=== PATIENT | female | born 1960 | race Caucasian/White ===

== ENCOUNTER 2021-09-15 15:00 | Outpatient (RCR) | payer OTHER, SELFPAY | END 2021-09-15 15:05 | disposition home or self-care (01) | LOC: PT 15:00 | PROVIDERS: PCP Obstetrics & Gynecology; Visit Provider Orthopaedic Surgery | DX: Z09 Encounter for follow-up examination after completed treatment for conditions other than malignant neoplasm (principal); M79.672 Pain in left foot | CPT/HCPCS: 97140; 97163 ==

== ENCOUNTER → 2021-09-20 16:09 | Outpatient (CLI) | payer OTHER, SELFPAY ==
--- NOTE | 2021-09-20 16:12 | XR_ITS ---
PROCEDURE: XR FOOT WT BEARING RT 3V CLINICAL INDICATION: pain COMPARISON: No exams were available for comparison FINDINGS: No fracture or dislocation. No lytic or blastic change. There is normal mineralization. Mild osteoarthritic changes are present the MTP joint. Small cerclage wires present along the medial and plantar aspect the proximal 1st phalanx. Bony hypertrophy is present at the distal aspect of the 1st metatarsal. Small Achilles enthesophyte is present. There is borderline pes planus. Other findings:None. IMPRESSION: Degenerative and postsurgical changes as described Dictated by: Odin Muller MD 09/20/2021 17:43 Odin Muller MD in [place] 09/20/2021 17:43
--- NOTE | 2021-09-20 16:12 | XR_ITS ---
PROCEDURE: XR FOOT WT BEARING LT 3V CLINICAL INDICATION: pain COMPARISON: No exams were available for comparison FINDINGS: No fracture or dislocation. No lytic or blastic change. There is normal mineralization. Mild osteoarthritis is present at the 1st and 2nd metatarsophalangeal joints. A small cerclage wire is present along the medial and plantar aspect the proximal 1st phalanx with some cortical thickening of the proximal 1st phalanx which could be due to an old fracture or postsurgical change. Bony hypertrophy involves the distal and plantar aspect the 1st metatarsal. There is fusion of the PIP joint of the 2nd digit and there is mild lateral subluxation of the proximal phalanx of the 2nd digit. There is borderline pes planus. Small Achilles enthesophyte is present. Other findings:None. IMPRESSION: Degenerative and postsurgical changes as described above Dictated by: Odin Muller MD 09/20/2021 17:42 Odin Muller MD in [place] 09/20/2021 17:42
== END ==
PROVIDERS: PCP Family Medicine; Visit Provider Podiatrist
DX: M79.672 Pain in left foot (principal); M79.671 Pain in right foot
CPT/HCPCS: 73630

== ENCOUNTER → 2021-11-29 10:17 | Outpatient (CLI) | payer OTHER, SELFPAY ==
--- NOTE | 2021-11-29 10:30 | XR_ITS ---
FINAL REPORT CLINICAL HISTORY: PRE-OP; history of lung cancer FINDINGS: 2 views of the chest were obtained . The heart is normal in size. The mediastinum is within normal limits. There is biapical pleural scarring and pleural thickening. Lungs are otherwise clear. There is no pneumothorax. There is levoscoliosis of the upper thoracic spine. IMPRESSION: No acute cardiopulmonary process. Reviewed, Interpreted and Dictated by Stan Marcano III, MD Transcribed by Madelaine Zapata Authenticated by Stan Marcano III, MD on 11/29/2021 04:18:[address] [facility]
[2021-11-29 10:50] LABS: Basophils # 0.1 K/mm3 (0-0.2); Eosinophils # 0.1 K/mm3 (0.0-0.4); Eosinophils % 3.4 % (0.1-12.0); Hematocrit 46.4 % (37.0-47.0); Hemoglobin 14.5 g/dL (12.2-16.2); Lymphocytes # 1.5 K/mm3 (0.7-4.5); Mean Corpuscular HGB Conc 31.2 g/dL (31.8-35.4); Mean Corpuscular Hemoglobin 30.9 pg (27.0-31.2); Mean Corpuscular Volume 99.2 fl (81-99); Mean Platelet Volume 8.7 fl (7.4-10.4); Monocytes # 0.3 K/mm3 (0.1-1.0); Monocytes % 7.9 % (1.7-9.3); Neutrophils # 1.5 K/mm3 (1.8-7.8); Neutrophils % 43.7 % (37.0-80.0); Platelet Count 219 K/mm3 (142-424); Red Blood Count 4.68 M/mm3 (4.20-5.40); Red Cell Distribution Width 13.7 % (11.5-17.5); White Blood Count 3.5 K/mm3 (4.8-10.8)
--- NOTE | 2021-11-29 10:51 | ECG_ITS ---
APPROVED REPORT Exam: Resting ECG HR:60 bpm ECG Measurements Heart Rate 60 AXES OR 158 P 85 QRSd 104 QRS 55 QT 400 T 87 QTc 400 Conclusion Normal sinus rhythm Incomplete right bundle branch block Borderline ECG Electronically signed by : Carlos Nicole MD 12/02/2021 13:49:57
[2021-11-29 11:36] LABS: Erythrocyte Sedimentation Rate 5 mm/hr (0-30)
[2021-11-29 11:57] LABS: Alanine Aminotransferase 18 U/L (12-78); Albumin Level 4.3 g/dl (3.5-5.0); Albumin/Globulin Ratio 1.8 (1.1-1.8); Alkaline Phosphatase 65 U/L (38-126); Aspartate Amino Transferase 27 U/L (14-36); Bilirubin,Total 0.7 mg/dl (0.2-1.3); Blood Urea Nitrogen 14 mg/dl (7-17); Carbon Dioxide 30 mmol/L (22.0-30.0); Chloride 101 mmol/L (98-107); Estimated Glomerular Filt Rate 85 ml/min (>60); GFR (African American) 103 ML/MIN (>60); Globulin 2.4 g/dL (1.3-3.2); Glucose 92 mg/dl (74-100); Sodium 137 mmol/L (136-145); Total Protein,Serum 6.7 g/dl (6.3-8.2)
[2021-11-29 12:04] LABS: C-Reactive Protein 1.5 mg/L (0-4)
[2021-11-29 12:09] LABS: Intact Parathyroid Hormone 47.7 pg/mL (7.5-53.5)
[2021-11-29 12:15] LABS: 25-OH Vitamin D, Total 59.3 ng/mL (30-100)
== END ==
PROVIDERS: PCP Family Medicine; Visit Provider Podiatrist
DX: Z01.812 Encounter for preprocedural laboratory examination (principal); Z11.52 Encounter for screening for COVID-19; M20.12 Hallux valgus (acquired), left foot; M77.52 Other enthesopathy of left foot and ankle
CPT/HCPCS: 36415; 71046; 80053; 82306; 83970; 85025; 85651; 86140; 93005; C9803; U0003; U0005

== ENCOUNTER 2021-12-01 06:58 | Day surgery (SDC) | payer OTHER, SELFPAY ==
[2021-11-26 09:30] VITALS: BMI 27.0
[2021-12-01] VITALS (13 sets, daily range): BP systolic 111–135; BP diastolic 65–85; PULSE 60–80; RESP 12–18; TEMP 36.5–43; O2SAT 92–98
--- NOTE | 2021-12-01 09:17 | P.PN_ITS ---
[facility] Anesthesia Checklist - Structural Data Admitted From: Home Planned Operative Procedure/s: orif l foot Consent for Planned Operative Procedure(s) Verified: Yes - Additional verifications Anesthesia Reactions: No Hx Blood Transfusions: No - Airway Assessment C-Spine Mobility Assessed: Yes TMJ Mobility Assessed: Yes Dentition: Good Dentition - Neurological Assessment Level of Consciousness: Awake, Alert, Appropriate - Psychosocial Assessment Concerns Regarding Surgery: explained pop block to pt, pt agrees to proceed - Anesthesia Plan Anesthesia Risk discussed: Yes Anesthesia Plan: Verified ASA Class: III Anesthesia Type: General w/block [facility] History I have reviewed the patient's past medical history: Yes Medical History: Reports:: Cancer (lung cancer) Denies:: Diabetes Mellitus Type 1, Diabetes Mellitus Type 2, Internal Pacemaker, MRSA, Seizures *Have you ever received a pneumonia vaccine?: Yes *Have you received a flu vaccine this season?: Yes Anesthesia experience/problems:: none Other Surgeries: Yes: Appendectomy, Dilation and Curettage. No: Pacemaker Amputation: No Fractures: No - *Social History Last grade of school completed: High school graduate Smoking Status: Never smoker Alcohol Intake: current Alcohol Intake Frequency:: 0-2 drinks per day Substance Use Type: denies use *Occupational Status:: unemployed *Travel in the last 8 weeks: None Family Hx:: No significant family history
--- NOTE | 2021-12-01 09:33 | SUR.OPER ---
0843-pt's updated at this time and notified of time of incision
--- NOTE | 2021-12-01 10:08 | SUR.OPER ---
1011-pt's updated at this time
--- NOTE | 2021-12-01 10:41 | SUR.OPER ---
1039-pt's updated at this time
--- NOTE | 2021-12-01 10:45 | XR_ITS ---
FINAL REPORT CLINICAL HISTORY: LEFT HAMMERTOE REPAIR OF 2ND 3RD TOE FINDINGS: FLUOROSCOPY TIME Fluoroscopic guidance was provided for the operating services. Two spot films were obtained. There are postoperative changes involving the 1st, 2nd and 3rd digits. There is 20 seconds of fluoroscopy time. IMPRESSION: 20 seconds of fluoroscopy time. Reviewed, Interpreted and Dictated by Stan Marcano III, MD Transcribed by Shivam Chicas Authenticated by Stan Marcano III, MD on 12/01/2021 11:54:[address] [facility]
--- NOTE | 2021-12-01 11:00 | XR_ITS ---
FINAL REPORT CLINICAL HISTORY: Post op hammertoe FINDINGS: Three views of the left foot were obtained. There are postoperative changes of the 1st, 2nd and 3rd digits. There are orthopedic wires in the 2nd and 3rd digits. There is no acute fracture or dislocation. The joint spaces are intact. There is no soft tissue abnormality. IMPRESSION: Postoperative changes involving the 1st, 2nd and 3rd digits. Reviewed, Interpreted and Dictated by Stan Marcano III, MD Transcribed by Shivam Chicas Authenticated by Stan Marcano III, MD on 12/01/2021 12:44:38 PM [facility]
--- NOTE | 2021-12-01 11:26 | HMH.ANESI ---
[facility] Anesthesia Record Part I Intake, IV Amount: 1,800 Estimated blood loss (mL): 0 Urine output (mL): 0 Blood Pressure: 123/67 SaO2: 94 Pulse Rate: 72 Respiratory Rate: 12 Temperature: 98 F Patient is:: Awake, Stable Stable to PACU at:: 11:20
--- NOTE | 2021-12-01 11:37 | SUR.PHASEI ---
1128- radiology at bedside taking xrays per Dr. potts's orders for post procedure.
--- NOTE | 2021-12-01 11:54 | SUR.PHASEI ---
1149- detailed report called to tray martinez in post op. 1151- pt left in stable condition under tray shields care at this time.
--- NOTE | 2021-12-01 12:25 | HMH.OPNOTE ---
Date of procedure: 12/01/21 Pre-op Diagnosis:: 1. Left retained orthopedic hardware 2. Capsulitis of metatarsophalangeal (MTP) joint of left foot 3. Left 2nd plantar plate tear 4. Acquired hammertoe of left foot 5. Acquired hallux valgus of left foot 6. Scar of foot 7. Primary osteoarthritis of both feet 8. Overweight (BMI 25.0-29.9) 9. Malignant neoplasm of upper lobe of left lung Post-op Diagnosis:: Same Procedure performed:: 1. Left foot hardware removal 2. Left Rene osteotomy with Hammer bunionectomy 3. Left 2nd plantar plate repair 4. Left 2-3rd revision hammertoe repair (2-3rd DIPJ arthoplasty, PIPJ arthodesis) 5. Left 2nd metatarsal osteotomy 6. Left 1-3rd MPJ releases 7. Left foot synovectomy Surgeon:: Paige Acosta DPM THREAD DRESSER:: Phoenix Myers Anesthesia: GETA, regional (Left popliteal nerve block) Estimated blood loss (mL): 20 Clinical Note:: Patient is a 61F who underwent mulitple foot surgeries for repair of hammertoes. After her last left foot surgery, she caught the surgical foot and bent the operative K wire. Which lead to its early removal. Discussed realistic expectations and goals. Goals: To wear shoe comfortably and walk for fitness without pain. I discussed conservative versus surgical treatment for the hammertoe deformity. The patient has tried modification of activity, modification of shoe gear, taping, toe spacers, strapping (Budin splint) and has failed conservative treatment. She has had two failed left HTs surgeries. The patient continues to have pain and worsening symptoms, affecting daily activities. She is unable to wear dress shoes or closed toe shoes. Patient understands that there may always be a degree of deformity and swelling. I discussed the risks versus benefits of surgery to include: bleeding, infection, nerve or blood vessel damage, need for future surgery, need for removal of the implant, prolonged swelling of the digit, prolonged pain, RSD/CRPS, wound complications, toe amputation secondary to infection/necrosis/gangrene, DVT/PE, and anesthetic complications. No guarantees were given. All questions fully answered. The patient verbalized understanding and agreed to proceed with surgery. Consent was obtained. PCP: Dr. Daniele Garcia. Necessary labs and pre-op testing ordered. Got a short fracture boot. Operative findings:: Retained orthopedic wire noted to medial proximal phalanx. Some left foot distal hallux valgus noted. First MPJ range of motion with some restriction secondary to scar adhesions. Significant scar tissue contracture noted. The second toe had a bowed-like appearance and was deviated laterally off the metatarsal head. Long 2nd metatarsal. There is no movement to the DIPJ or the PIPJ secondary to prior surgery. The second plantar plate did have a tear noted. Some early arthritic changes noted to the metatarsal heads. At the level of the second MPJ there was a lack of the medial collateral ligaments noted. At the first MPJ there was Ethibond noted to the medial joint and a short first metatarsal noted. Modifier: this case took 1 hour longer than normal due to the revisional nature of the procedure. This was the patient's third left foot surgery. There was significant deformity, fibrosis and scarring of the soft tissue. The bone quality was also poor making the procedure more time-consuming and technically difficult. Operative note:: On this date and time patient was deemed an appropriate surgical candidate. Anesthesia performed a pre-op regional popliteal nerve block. With informed consent signed, the patient was taken to the operating theater. The patient was positioned supine. General anesthesia was induced. Tourniquet was applied to the left mid calf. IV Ancef given. The left lower extremity was prepped and draped in normal sterile fashion. Left modified Hammer bunionectomy, Rene osteotomy, hardware removal: Attention was directed to the first MPJ. There was contracture distally noted to the hallux. P
--- NOTE | 2021-12-01 17:04 | P.PN_ITS ---
[facility] Anesthesia Record Part II Discharge Time: 11:50 Destination: Home PACU nurse assessment reviewed?: Yes Patient Condition:: Good Anesthesia Complications:: None none Swallowing reflex intact?: Yes Cyanosis?: No Blood Pressure: 125/73 Pulse Rate: 78 Temperature: 98.5 F Mental Status: Alert & Oriented Pain level:: 0 Nausea and/or vomitting:: None Intake, IV Amount: 0
== END 2021-12-01 13:10 | disposition home or self-care (01) ==
LOC: OR 07:00
PROVIDERS: PCP Family Medicine; Visit Provider Podiatrist
PROC: (CPT 28285; principal; 2021-12-01 08:30)
DX: M20.12 Hallux valgus (acquired), left foot (principal); M20.42 Other hammer toe(s) (acquired), left foot; Z79.899 Other long term (current) drug therapy; M19.071 Primary osteoarthritis, right ankle and foot; M19.072 Primary osteoarthritis, left ankle and foot; M77.52 Other enthesopathy of left foot and ankle; M77.41 Metatarsalgia, right foot; C34.12 Malignant neoplasm of upper lobe, left bronchus or lung; G62.9 Polyneuropathy, unspecified
CPT/HCPCS: 28285; 28298; 28292; 73620; 73630; 76000; 96374; C1713; J2405

== ENCOUNTER → 2022-01-04 13:58 | Outpatient (CLI) | payer OTHER, SELFPAY ==
--- NOTE | 2022-01-04 14:02 | XR_ITS ---
FINAL REPORT CLINICAL HISTORY: postop views surgery on 12/01/21 prior on 12/01/21 COMPARISON: December 01, 2021 FINDINGS: 3 views of the left foot were obtained. There is postoperative change involving the 1st, 2nd, and 3rd digits. Bony alignment appears normal. Hardware is stable. There are mild degenerative changes.. IMPRESSION: Postoperative change in stable alignment. Reviewed, Interpreted and Dictated by Stan Marcano III, MD Transcribed by Shivam Chicas Authenticated by Stan Marcano III, MD on 01/04/2022 03:43:02 PM [facility]
== END ==
PROVIDERS: PCP Nurse Practitioner Family; Visit Provider Podiatrist
DX: Z87.39 Personal history of other diseases of the musculoskeletal system and connective tissue (principal); Z98.890 Other specified postprocedural states
CPT/HCPCS: 73630

== ENCOUNTER → 2022-02-01 11:17 | Outpatient (CLI) | payer OTHER, SELFPAY ==
--- NOTE | 2022-02-01 11:24 | XR_ITS ---
FINAL REPORT CLINICAL HISTORY: postop views COMPARISON: January 04, 2022 FINDINGS: LEFT FOOT: Three views of the left foot were obtained. Postoperative changes are again seen involving the 1st, 2nd, and 3rd digits. The proximal portion of the staple at the 1st proximal phalanx overlaps the MTP joint. The wires have been removed from the 2nd and 3rd digits. Mild degenerative changes are present. IMPRESSION: Postoperative changes as above. The proximal portion of the staple at the 1st proximal phalanx overlaps the MTP joint. An intra-articular location cannot be excluded. Reviewed, Interpreted and Dictated by Stan Marcano III, MD Transcribed by Shivam Chicas Authenticated by Stan Marcano III, MD on 02/01/2022 01:02:58 PM [facility]
== END ==
PROVIDERS: Visit Provider Podiatrist
DX: L60.8 Other nail disorders (principal); Z87.39 Personal history of other diseases of the musculoskeletal system and connective tissue; Z98.890 Other specified postprocedural states
CPT/HCPCS: 73630; 87102; 87206; 87220

== ENCOUNTER 2022-02-15 14:00 | Outpatient (RCR) | payer OTHER, SELFPAY ==
--- NOTE | 2022-01-18 11:59 | HMH.PTOPEV ---
PT Outpatient Evaluation Rehab PT Outpatient Evaluation Start: 01/18/22 10:47 Freq: Status: Active Protocol: Document 01/18/22 11:38 YOAV (Rec: 01/18/22 11:59 YOAV [id number]) Electronically Signed By Rehan Oliva, PT 01/18/22 11:38 Outpatient Therapy Subjective History Subjective History Pt presents s/p Left foot hardware removal, Rene osteotomy with Hammer bunionectomy, 2nd plantar plate repair, 2-3rd revision hammertoe repair (2-3rd DIPJ arthoplasty, PIPJ arthodesis), 2nd metatarsal osteotomy, 1- 3rd MPJ releases, foot synovectomy, sx. on 12/01/21. Pt reports improved 2nd and 3rd toe alignment since sx., and reports 'very litttle pain , some mild discomfort' globally around 2nd and 3rd digits, and has progressed well w/recent WB'ing status on LLE. Pt also reports some left ankle weakness, and stiffness secondary to post-op restrictions, and reports dorsal surface post-op incision of 2nd and 3rd digits scabbing has improved over the last couple days. Chief Complaint Pain,Stiff,Weakness Symptom Type Ache,Dull Symptoms Relieved By Rest/Positioning Symptoms Aggravated By Standing,Physical Activity, Walking Prior Functional Limitations Housework,Standing,Walking Current Functional Limitations Housework,Standing,Walking Symptom Description Intermittent Ankle/Foot Eval Gait Observation General Gait Pattern Observation No Deviations/Normal,Wide Based Gait Assistive Device Ambulation Assistive Device Straight Cane Palpation Tenderness left Ankle/Foot Palpation Findings Tenderness Ankle/Foot Palpation Overall Comment 2/4 2nd, 3rd digit and MTP jt ROM Ankle/Foot ROM Reason Not Measured Within Functional Limits Accessory Movements Metatarsal Accessory Movements that limited (moderate restriction) Elicit Symptoms between 2nd/3rd metatarsal MMT left Ankle Dorsiflexion Strength Grade 4 Good Ankle Plantarflexion Strength Grade 4 Good Foot Eversion Strength Grade 4- Good- Foot Inversion Strength Grade 4- Good- Outpatient Therapy Assessment Impairments
--- NOTE | 2022-02-15 15:00 | HMH.RHREAS ---
Rehab Reassessment Rehab OP Re-assessment Start: 02/15/22 13:37 Freq: Status: Active Protocol: Document 02/15/22 14:34 YOAV (Rec: 02/15/22 15:00 YOAV [id number]) Electronically Signed By Rehan Oliva, PT 02/15/22 14:34 Rehab Re-assessment Subjective Subjective Pt reports improved left foot and ankle pain since I eval, and as recently as this morning improved mid foot pain with placement of metatarsal pad by Dr. Acosta. Pt reports slowly improving endurance, ' we walk up to 20 minutes some evenings, up and down hill'. Objective Objective Notes TTP: 1/4 2nd, 3rd digit and MTP jt MMT: LEFT ANKLE DF 4-4+/5, PF 4+/5, INV 4/5, EVR 4/5 FLEXIBILITY:LEFT GASTROC ~75% OF WFL, LEFT SOLEUS ~50% OF WFL AROM:left 2nd,3rd metatarsal shift W/ minimal restriction GAIT: WFL ON LEVEL TERRAIN Assessment Progress Assessment Progressing as Expected Assessment Notes IMPROVED TTP, STRENGTH, AND GAIT, HOWEVER, PROPRIOCEPTION IS NOT OPTIMAL, AND ENDURANCE LIMITED W/STANDING AND WALKING D/T SORENESS AND FATIGUE Patient goals met STG'S 05/28 LTG'S 12/29 Goals Not Met STG'S 12/29, LTG'S 05/28 Plan Plan Pt to continue w/skilled P.T. to make further improvements in left foot/ankle strength, flexibility, and LLE proprioception to allow for optimal function, endurance, and gait. Frequency of Therapy 1-2x/wk Duration of therapy 3-4wks Time and Billing Re-Eval Time 15 Re-Eval Billing Units 1 PHYSICIAN CERTIFICATION: I certify the specified therapy services for Shraddha Burks are required, authorized, and reviewed every 30 days.
== END 2022-02-15 14:05 | disposition home or self-care (01) ==
LOC: PT 14:00
PROVIDERS: PCP Nurse Practitioner Family; Visit Provider Podiatrist
DX: M20.42 Other hammer toe(s) (acquired), left foot (principal); Z98.890 Other specified postprocedural states
CPT/HCPCS: 97010; 97014; 97110; 97112; 97140; 97163; 97164; G0283

== ENCOUNTER 2022-03-21 10:00 | Outpatient (RCR) | payer OTHER, SELFPAY ==
--- NOTE | 2022-03-14 10:39 | HMH.PTOPWND ---
Rehab Outpt Wound Evaluation Rehab OP Wound Evaluation Start: 03/14/22 10:33 Freq: Status: Active Protocol: Document 03/14/22 10:33 ALEXANDRA (Rec: 03/14/22 10:39 PWELIZABETH [id number]) Electronically Signed By Jason Morrison, ABDIAZIZ 03/14/22 10:33 Subjective/History History History This is the initial OP wound clinic evaluation for Shraddha Burks. Pt is a 62 y/o female referred to PT wound care for post surgical wound on L foot. Pt reports she has had 3 surgeries on her foot which included internal fixation. Pt reports the last surgery performed by Dr. Acosta DPM involved 2 skin grafts. Subjective Subjective Pt reportsself care and at home dressing changes of wound . Pt also states wound is looking better than it has before Wound Eval Wound Left Upper Distal Foot Wound Type Incision Is This a Chronic Wound Yes Wound Length (cm) 0.2 Wound Width (cm) 0.2 Wound Depth (cm) 0.1 Percentage Granulated (%) 100 Drainage Description Serous Drainage Amount Scant Dressing Status Dry & Intact Primary Dressing Absorbant Pad Comment polymem dot Wound Debridement Method Gauze Wound Debridement Amount of Tissue Minimal Removed Dressing Change Patient Tolerance Tolerated Well Wound Problems/Impairments Impairments Problems/Impairmments Wound Care Needs Prognosis Rehab Potential Good Clinical Impression Consistent with Diagnosis Yes Short Term Goals Number of Weeks 3 Decrease Wound Area Yes: 50% Patient to be Ind w/ Home Wound Care/ Yes Dressing Changes Consultant Goals Number of Weeks 6 Decrease Wound Area Yes: 100% Outpatient Therapy Plan of Care Treatment Plan May Include Wound Care Yes Frequency Times per week 2 Duration Number of Weeks 6 Addendums This patient is a candidate for social No or vocational rehab? Patient/Guardian verbally acknowledges Yes understanding of treatment program and consents to further treatment? Patient/Guardian verbally acknowledges Yes understanding of diagnosis, prognosis and goals for treatment?
== END 2022-03-21 10:05 | disposition home or self-care (01) ==
LOC: PT 10:00
PROVIDERS: PCP Nurse Practitioner Family; Visit Provider Podiatrist
DX: S91.002D Unspecified open wound, left ankle, subsequent encounter (principal); T81.31XD Disruption of external operation (surgical) wound, not elsewhere classified, subsequent encounter; Z98.890 Other specified postprocedural states
CPT/HCPCS: 97161; 97597

== ENCOUNTER → 2022-05-18 09:16 | Outpatient (CLI) | payer OTHER, SELFPAY ==
--- NOTE | 2022-05-18 09:21 | XR_ITS ---
FINAL REPORT TECHNIQUE: Bone mineral density was calculated of the lumbar spine and hip. CLINICAL HISTORY: . POST MENOPAUSAL FINDINGS: DEXA BONE DENSITY AXIAL SKELETON Using L1-4, the bone mineral density of the spine is 1.300 g/cm2, corresponding to T-score of 2.3. Normal bone mineral density. Note these values are likely falsely elevated secondary to postoperative change and hypertrophic change. Using the right hip, the bone mineral density of the femoral neck is 0.787 g/cm2, corresponding to a T-score of -0.6. Normal bone mineral density. Using the left for are, the bone mineral density of the distal 1/3 is 0.608 g/cm2, corresponding to a T-score of -1.4. Diminished bone mineral density. NOTE: T-score: Standard deviation compared with peak bone mass of young adult mean. *Following the recommendations of the International Society of Bone densitometry, classification of hip BMD is based on the lower of two T-scores; total hip or femoral neck. IMPRESSION: Diminished bone mineral density of the distal 1/3 of the right forearm consistent with osteopenia. Reviewed, Interpreted and Dictated by Stan Marcano III, MD Transcribed by Jacqueline Hernandez Authenticated and . [facility]
== END ==
PROVIDERS: PCP Family Medicine; Visit Provider Internal Medicine
DX: Z13.820 Encounter for screening for osteoporosis (principal); Z78.0 Asymptomatic menopausal state
CPT/HCPCS: 77080

== ENCOUNTER → 2022-05-31 10:40 | Outpatient (CLI) | payer OTHER, SELFPAY ==
--- NOTE | 2022-05-31 10:45 | XR_ITS ---
FINAL REPORT CLINICAL HISTORY: postop views, sx in november 2021 COMPARISON: 02/01/2022 FINDINGS: LEFT FOOT Three views were obtained. There is no acute fracture or dislocation. There is an orthopedic staple in the 1st metatarsophalangeal joint, unchanged in position. There are 2 orthopedic screws in the distal 2nd metatarsal. There are some hypertrophic changes of the 2nd metatarsophalangeal joint, more evident than previous. There is an orthopedic screw bridging the 3rd PIP joint. No soft tissue abnormality is identified. IMPRESSION: Degenerative and postoperative changes as detailed above. Reviewed, Interpreted and Dictated by Aaron Gaviria MD Transcribed by Gely Newman Authenticated and [facility]
== END ==
PROVIDERS: PCP Family Medicine; Visit Provider Podiatrist
DX: M20.42 Other hammer toe(s) (acquired), left foot (principal); M20.5X2 Other deformities of toe(s) (acquired), left foot; Z98.890 Other specified postprocedural states
CPT/HCPCS: 73630

== ENCOUNTER → 2022-08-31 13:45 | Outpatient (CLI) | payer OTHER, SELFPAY ==
--- NOTE | 2022-08-31 13:45 | MM_ITS ---
PROCEDURE INFORMATION: Exam: MG Bilateral Screening 3D Mammography Exam date and time: 08/31/2022 1:38 PM Age: 62 years old Clinical indication: Screening. Personal history of lung cancer. No family history of breast cancer. TECHNIQUE: Imaging protocol: Bilateral Screening tomosynthesis and 2D mammography including computer-aided detection (CAD) when performed. COMPARISON: 1. MG MAMMO SCREENING DIGITAL TOMOSYNTHESIS BILATERAL W CAD 04/26/2019 11:14 AM 2. MG MAMMO SCREENING DIGITAL TOMOSYNTHESIS BILATERAL W CAD 04/25/2018 1:12 PM 3. MG MAMMO SCREENING DIGITAL TOMOSYNTHESIS BILATERAL W CAD 05/17/2017 11:46 AM 4. MG BC-MAMM DIAG BILAT DIG PNL 09/02/2015 8:39 AM FINDINGS: MAMMOGRAPHY: Breast composition: The breasts are almost entirely fatty. Mass: No suspicious mass. Architectural distortion: None. Calcifications: No suspicious calcifications. Asymmetric density: None. Skin thickening: None. Axillary adenopathy: None. IMPRESSION: No mammographic evidence of malignancy. Annual screening is recommended unless otherwise clinically indicated. ASSESSMENT: BI-RADS Category 1: Negative
== END ==
PROVIDERS: PCP Family Medicine; Visit Provider Obstetrics & Gynecology
DX: Z12.31 Encounter for screening mammogram for malignant neoplasm of breast (principal)
CPT/HCPCS: 77063; 77067

== ENCOUNTER → 2023-05-16 12:07 | Outpatient (CLI) | payer OTHER, SELFPAY ==
--- NOTE | 2023-05-16 12:08 | MR_ITS ---
FINAL REPORT CLINICAL HISTORY: neck pain. HISTORY LUNG CANCER. LEFT SIDED NECK PAIN WITH MUSCLE SPASMS. NUMBNESS BILATERAL FINGERS. FINDINGS: Multiplanar MR imaging of the cervical spine was performed without and with contrast. On the sagittal T2-weighted images, disc degeneration is seen at throughout. There are endplate changes at multiple levels. The vertebral alignment is normal. There is no evidence of fracture. There is a sclerotic focus in the anterior vertebral body of C6 of uncertain etiology The cervical spinal cord has an unremarkable appearance without evidence of mass, edema or syrinx. There is no evidence of significant canal stenosis. C2-3: There are uncovertebral osteophytes with mild left neural foraminal narrowing. C3-4:No significant canal stenosis or neural foraminal narrowing is identified. C4-5: An annular bulge is present. No significant canal stenosis or neural foraminal narrowing is identified. C5-6: There is a disc osteophyte complex. There is moderate right and severe left neural foraminal narrowing. C6-7: There is a disc osteophyte complex. There is severe bilateral neural foraminal narrowing. C7-T1: No significant canal stenosis or neural foraminal narrowing is identified. No abnormal contrast enhancement is seen on the postcontrast images. IMPRESSION: Multilevel degenerative disc disease as described. Sclerotic focus in the C6 vertebral body of uncertain etiology. Sclerotic bony metastasis cannot be excluded. This could be further evaluated with bone scan or MRI in 6 months. Reviewed, Interpreted and Dictated by Stan Marcano III, MD Transcribed by Shivam Chicas Authenticated and [facility]
[2023-05-16 12:41] LABS: Alanine Aminotransferase 22 U/L (12-78); Albumin Level 3.9 g/dl (3.5-5.0); Albumin/Globulin Ratio 1.4 (1.1-1.8); Alkaline Phosphatase 107 U/L (38-126); Anion Gap 11.6 mEq/L (5-15); Aspartate Amino Transferase 34 U/L (14-36); Bilirubin,Total 0.6 mg/dl (0.2-1.3); Blood Urea Nitrogen 12 mg/dl (7-17); Calcium 8.5 mg/dl (8.4-10.2); Carbon Dioxide 29 mmol/L (22.0-30.0); Chloride 104 mmol/L (98-107); Estimated Glomerular Filt Rate 101 ml/min (>60); GFR (African American) 122 ML/MIN (>60); Globulin 2.8 g/dL (1.3-3.2); Glucose 113 mg/dl (74-100); Potassium 4.6 mmoL/L (3.5-5.1); Sodium 140 mmol/L (136-145); Total Protein,Serum 6.7 g/dl (6.3-8.2)
== END ==
PROVIDERS: PCP Nurse Practitioner Family; Visit Provider Nurse Practitioner Family
DX: M54.2 Cervicalgia (principal); M54.50 Low back pain, unspecified
CPT/HCPCS: 36415; 72156; 76376; 80053; A9576

== ENCOUNTER 2023-06-28 15:00 | Outpatient (RCR) | payer OTHER, SELFPAY | END 2023-06-28 15:05 | disposition home or self-care (01) | LOC: PT 15:00 | PROVIDERS: PCP Nurse Practitioner Family; Visit Provider Neurological Surgery | DX: M54.2 Cervicalgia (principal) | CPT/HCPCS: 20561; 97010; 97014; 97035; 97110; 97140; 97163; 97530; G0283 ==

== ENCOUNTER 2023-08-09 11:00 | Outpatient (RCR) | payer OTHER, SELFPAY | END 2023-08-09 11:05 | disposition home or self-care (01) | LOC: PT 11:00 | PROVIDERS: PCP Nurse Practitioner Family; Visit Provider Nurse Practitioner | DX: M51.26 Other intervertebral disc displacement, lumbar region (principal); M48.062 Spinal stenosis, lumbar region with neurogenic claudication | CPT/HCPCS: 97010; 97014; 97110; 97140; 97163; 97164; 97530; G0283 ==

== ENCOUNTER 2024-02-19 12:52 | Outpatient (CLI) | payer OTHER, SELFPAY ==
--- NOTE | 2024-02-19 12:57 | XR_ITS ---
FINAL REPORT CLINICAL HISTORY: neck and left shoulder pain hit shoulder on door and caused pain and spasm COMPARISON: None FINDINGS: LEFT SHOULDER 4 views demonstrate no acute fracture or dislocation. Moderate acromioclavicular degenerative change present. The visualized bony structures are well aligned. No soft tissue abnormality is seen. IMPRESSION: No acute process. Moderate acromioclavicular degenerative change Reviewed, Interpreted and Dictated by Stan Marcano III, MD Transcribed by Wendy Martinez Authenticated and [facility]
--- NOTE | 2024-02-19 12:57 | XR_ITS ---
FINAL REPORT TECHNIQUE: 5 views CLINICAL HISTORY: cervicalgia, left shoulder pain hit shoulder on door and caused pain and spasm COMPARISON: None FINDINGS: There is no fracture present. There is no malalignment. There is moderate degenerative change with multilevel osteophytes. There is mild left C5-6, and mild right C4-5 and C6-7 neural foraminal narrowing. IMPRESSION: Moderate degenerative change as described. Reviewed, Interpreted and Dictated by Stan Marcano III, MD Transcribed by Wendy Martinez Authenticated and [facility]
== END 2024-02-19 23:59 ==
LOC: RAD 12:53
PROVIDERS: PCP Nurse Practitioner Family; Visit Provider Nurse Practitioner Family
DX: M25.512 Pain in left shoulder (principal); M54.2 Cervicalgia
CPT/HCPCS: 72050; 73030

== ENCOUNTER 2024-02-22 10:13 | Outpatient (CLI) | payer OTHER, SELFPAY ==
--- NOTE | 2024-02-22 10:14 | MR_ITS ---
FINAL REPORT CLINICAL HISTORY: cervicalgia, cervical DDD, history of lung CA. muscle spasms. left sided neck pain. COMPARISON: 05/16/2023 FINDINGS: Multiplanar MR imaging of the cervical spine was performed without contrast. On the sagittal T2-weighted images, disc degeneration is seen throughout the cervical discs. Endplate changes are seen at several levels. There is no evidence of fracture. The vertebral alignment is normal. The cervical spinal cord has an unremarkable appearance without evidence of mass, edema or syrinx. No significant canal stenosis is identified. The cervicomedullary junction is normal. C2-3: There is no significant canal stenosis or neural foraminal narrowing. C3-4: There are uncovertebral osteophytes. There is moderate left neuroforaminal narrowing. C4-5: An annular bulge is present. There is left facet arthropathy. There is mild left neuroforaminal narrowing. C5-6: There is a disc osteophyte complex. There is mild right and moderate left neuroforaminal narrowing. C6-7: There is a disc osteophyte complex. There is severe bilateral neuroforaminal narrowing. C7-T1: There is no significant canal stenosis or neural foraminal narrowing. IMPRESSION: Multilevel degenerative disc disease not significantly changed from the prior exam. Reviewed, Interpreted and Dictated by Stan Marcano III, MD Transcribed by Rina Angel Authenticated and [facility]
== END 2024-02-22 23:59 ==
LOC: RAD 10:14
PROVIDERS: PCP Nurse Practitioner Family; Visit Provider Nurse Practitioner Family
DX: M25.512 Pain in left shoulder (principal); M54.2 Cervicalgia; Z85.118 Personal history of other malignant neoplasm of bronchus and lung
CPT/HCPCS: 72141; 76376

== ENCOUNTER 2024-02-28 13:02 | Outpatient (POV) | payer OTHER, SELFPAY ==
[2024-02-28 13:05] VITALS: BP 125/71; PULSE 74; RESP 18; O2SAT 96; BMI 27.7
--- NOTE | 2024-02-28 13:32 | A.OFFVIS_ITS ---
HPI Data of Consult Patient: new to practice Consult date: 02/28/24 Requesting Physician: Shelly Garnett APRN Primary Care Provider: Cata Blount APRN Consult Narrative Reason for consult: Neck pain, left shoulder pain, chronic low back pain History of present illness: Ms. Burks is a 64 year old female who presents today as a new patient. She is a referral from Francy Gutiérrez's office. Today she rates her pain a 4 out of 10. Patient states her pain is all throughout her neck and into her left shoulder. Patient states this been going on for years and progressively worsened over time. Patient does describe this as a constant hurting sensation with some numbness. She does state the pain interferes with her ability perform activities of daily living such as cooking and cleaning. 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 She states that this episode started about 2 weeks ago. Patient states that there were 2 things that she thinks may have played a role in her pain. She states that she did have a microwave installed and ended up running into the door with her left shoulder. Patient also stated that she had been exercising with resistance bands and feels like that she had too strong of a band on and may have strained something. Patient has tried [id number] Tylenol and ibuprofen along with heat and ice and topicals such as Voltaren and lidocaine rub with minimal relief. Patient does state that she does have Motrin 800 mg however sometimes this affects her stomach so she tries to avoid it. Patient does state in worsening pain time she will take a Percocet and it does help from time to time. Patient does state that she does have a history of neck related pain in the past. She also states that she has also had low back issues that were chronic. Patient has had a history of kyphoplasty in the lumbar spine as well as epidural injections that she states did help. Patient also states that she has had a cancer history and is in remission currently. Patient has had physical therapy and states it did help some. Patient has been prescribed Flexeril however she states that it does cause her to feel funny so she typically only takes it at night. Her Du has been reviewed and is appropriate. CC: Shelly Garnett APRN [facility] Disclaimer: The information contained in this section may have been updated after the patient was seen, as this information can be updated by other users. Medical History Status post gamma knife treatment Lung cancer chemo for 5 years Surgical History H/O foot surgery History of appendectomy H/O kyphoplasty Family History Mother Rheumatic heart disease Cancer pancreatic Father Coronary artery disease Diabetes Social History (Updated 02/28/24 @ 13:37 by Koki Liang RN) Smoking Status: Never smoker alcohol intake: current substance use type: denies use current occupational status: employed Travel in the last 8 weeks: None caffeine: Yes Review of Systems Review of Systems Review of systems:: pertinent systems reviewed and negative unless documented below Review of systems (narrative): Review of Systems: General: No recent weight changes, no fever, no sleep disturbances Respiratory: No cough, no shortness of air, no recurring pulmonary infections Cardiovascular/peripheral vascular: No chest pain, no palpitations, no edema, no shortness of breath Gastrointestinal: No new onset incontinence, normal bowel movements reported Genitourinary: No new onset incontinence Musculoskeletal: Neck pain, bilateral shoulder pain Psychiatric: [Normal mood/affect] Neurological: [Denies weakness in extremities], [denies balance issues] Meds Home Medications and Allergies Home Medications Medication Instructions Recorded Confirmed Type magnesium chloride 71.5 mg 2 tab PO DAILY MUSCLE CRAMPS 11/26/21 02/28/24 History (magnesium chloride) tablet,delayed release pediatric [id number] 1 each PO DAILY SUPPLEMNT 11/26/21 02/28/24 History potassium 99 mg tablet 2 tab PO HS Supplement 11/26/21 02/28/24 History calcium carbonate 2,000 mg PO DAILY PRN CALCIUM 05/16/23 02/28/24 History SUPPLEMENT ibuprofen 800 mg tablet 800 mg PO BID pain, mild 05/16/23 02/28/24 History tizanidine 2 mg tablet 2 mg PO HS PRN Pain 05/16/23 02/28/24 History estradiol 0.01% (0.1 mg/gram) 1 appful vaginal QHS PRN 05/24/23 02/28/24 Rx vaginal cream SUPPLEMENT 28 days #42.5 grams cyclobenzaprine 10 mg tablet 10 mg PO TID PRN muscle spasm #30 02/19/24 02/28/24 Rx tabs oxycodone-acetaminophen 5 mg-325 1 tab PO Q6H 30 days #30 tabs 02/19/24 02/28/24 Rx mg tablet New Prescriptions to Start Prescriptions: Allergies Allergy/AdvReac Type Severity Reaction Status Date / Time gefitinib [From Iressa] Allergy Verified 02/19/24 11:50 doxycycline AdvReac Unknown Unknown Verified 02/19/24 11:50 allergy reaction Objective Narrative: Physical Exam: General: Alert and oriented x3, no acute distress, pleasant and cooperative Lungs: Respirations even and unlabored, symmetrical chest expansion Eyes: PERRL Musculoskeletal: Flexion and extension of cervical [spine] somewhat guarded secondary to pain, [antalgic gait noted] point tenderness along bilateral trapezius and rhomboid muscles Neurological: Speech clear, no gross sensory deficit Additional findings Additional findings: FINDINGS: Multiplanar MR imaging of the cervical spine was performed without contrast. On the sagittal T2-weighted images, disc degeneration is seen throughout the cervical discs. Endplate changes are seen at several levels. There is no evidence of fracture. The vertebral alignment is normal. The cervical spinal cord has an unremarkable appearance without evidence of mass, edema or syrinx. No significant canal stenosis is identified. The cervicomedullary junction is normal. C2-3: There is no significant canal stenosis or neural foraminal narrowing. C3-4: There are uncovertebral osteophytes. There is moderate left neuroforaminal narrowing. C4-5: An annular bulge is present. There is left facet arthropathy. There is mild left neuroforaminal narrowing. C5-6: There is a disc osteophyte complex. There is mild right and moderate left neuroforaminal narrowing. C6-7: There is a disc osteophyte complex. There is severe bilateral neuroforaminal narrowing. C7-T1: There is no significant canal stenosis or neural foraminal narrowing. IMPRESSION: Multilevel degenerative disc disease not significantly changed from the prior exam. Reviewed, Interpreted and Dictated by Stan Marcano III, MD Transcribed by Rina Angel Authenticated and [facility] Assessment and Plan *Assessment and plan (1) Degenerative disc disease, cervical: Status: Acute Category: Medical Code(s): M50.30 - Other cervical disc degeneration, unspecified cervical region (2) Cervical radiculopathy: Status: Acute Category: Medical Code(s): M54.12 - Radiculopathy, cervical region (3) Left shoulder pain: Status: Acute Qualifiers: Chronicity: acute Qualified Code(s): M25.512 - Pain in left shoulder Category: Medical Code(s): M25.512 - Pain in left shoulder (4) Myofascial pain: Status: Acute Category: Medical Code(s): M79.18 - Myalgia, other site Plan Patient is experiencing worsening pain in and around her neck and bilateral shoulders with limited range of motion of her cervical spine. Patient did have a positive Spurling's test today however she had more pain with palpation along her bilateral trapezius muscles and bilateral rhomboid muscles. I have discussed with the patient that she may benefit from trigger point injections of these muscle groups. Risk and benefits were discussed with the patient and she would like to proceed forward with this plan of care. I will also order the patient a compounded cream. Patient will be scheduled for trigger point injections of her bilateral trapezius and rhomboid muscles. Patient has been instructed to contact the clinic with any concerns before the next appointment. Dr. Brown has reviewed this note and agrees with this plan of care. This note was dictated using voice recognition software and make contain errors or omissions.
== END 2024-02-28 23:59 ==
LOC: SC.PAIN 13:02
PROVIDERS: PCP Nurse Practitioner Family; Visit Provider Nurse Practitioner Family
DX: M50.10 Cervical disc disorder with radiculopathy, unspecified cervical region (principal); M25.512 Pain in left shoulder; M79.18 Myalgia, other site
CPT/HCPCS: 99202; G0463

== ENCOUNTER 2024-03-05 13:11 | Day surgery (SDC) | payer OTHER, SELFPAY ==
[2024-03-05 13:24] VITALS: BP 135/74; PULSE 74; RESP 16; O2SAT 97; BMI 27.4
[2024-03-05] MEDS: BUPIVACAINE 0.25% 10ML INJ 25 MG IJ (13:48)
[2024-03-05] MEDS: LIDOCAINE 1% 5ML PF VIAL 5 ML (13:48)
[2024-03-05 13:49] VITALS: BP 139/77; PULSE 74; RESP 18; O2SAT 96
[2024-03-05] MEDS: methylPREDNISolone ACETATE 80MG/ML VIAL 80 MG (13:49)
[2024-03-05 13:51] VITALS: BP 139/77; PULSE 70; RESP 18; O2SAT 96
--- NOTE | 2024-03-05 13:59 | P.PCN_ITS ---
Procedure Date: 03/05/24 Time: 13:43 Anesthesiologist:: Jerardo Anders CRNA Complications:: None Pre-procedure Diagnosis:: Myofascial pain bilateral trapezius. Bilateral rhomboids. Post-procedure Diagnosis:: Same. Indications for Procedure:: Patient is a very pleasant 64-year-old female comes to clinic today for bilateral trapezius and rhomboid trigger point injections of cortisone, lidocaine, Marcaine. Patient has tried physical therapy without success. She continues having pain in the trap and rhomboid area. She rates her pain 5/10. Procedure Details:: Details of the procedure explained to the patient. The patient taken procedure and placed in sitting position. The area over the bilateral trapezius and rhomboids was cleaned using chlorhexidine as a cleansing solution. Using a 25- gauge inch and half needle the left trapezius muscle was injected in 2 separate areas with 3 cc in each area. The left rhomboid medial to the medial border of the scapula was injected into separate areas with 3 cc in each area. The solution is 40 mg of Depo-Medrol mixed with 6 cc of 0.25% Marcaine and 6 cc 1% lidocaine. The same procedure was carried out over the right trapezius and rhomboid. Patient tolerated procedure without difficulty. There are no complications. Plan and Disposition:: Patient was discharged without incident.
[2024-03-05 14:00] VITALS: BP 142/67; PULSE 65; RESP 18; O2SAT 97
== END 2024-03-05 14:00 | disposition home or self-care (01) ==
PROVIDERS: PCP Nurse Practitioner Family; Visit Provider Nurse Anesthetist, Certified Registered
DX: M79.18 Myalgia, other site (principal)
CPT/HCPCS: 20553; J1010

== ENCOUNTER 2024-03-14 10:53 | Outpatient (POV) | payer OTHER, SELFPAY ==
[2024-03-14 11:03] VITALS: BP 181/96; PULSE 62; RESP 18; O2SAT 97; BMI 27.7
--- NOTE | 2024-03-14 11:37 | A.OFFVIS_ITS ---
[facility] Pain Management SOAP Note Subjective:: Patient is a pleasant 64-year-old female who presents today for follow-up of trigger point injection of her cervical paraspinous muscles along the left side, left trapezius and left rhomboid muscles on 03/05/2024. Today she rates her pain a 9 out of 10. Patient denies any new trauma or injury. Patient does state that she did have worsening pain following these trigger points. Patient states that she felt like possibly physical therapy aggravated her symptoms and so when she went for these injections it was very painful and she was very tense. Patient states that she noticed no additional improvement. She does state that she continues to have pain in her neck with radiating symptoms down into her left shoulder. She describes this as a strong constant uncomfortable and overwhelming sensation. Patient states that she cannot do any activities of living such as cooking or cleaning due to the worsening pain symptoms and that she has trouble even focusing to answer questions due to the pain. Patient does state from our last visit she has tried the prior pregabalin 25 mg at bedtime medicine that a previous provider prescribed with no additional change as well as doxepin prescribed from her prior pain clinic. She feels like none of this has helped. Patient was ordered a compounded cream at her last visit however she states that it took a while for them to call and that she ended up having to call and that she did not proceed to order it at this point. Patient is prescr ibed Flexeril however states that she does not really like taking it because it does not really help and she feels funny. Patient does state that she has been relying more on her Percocet just because it does take the edge off of her pain symptoms. Her Du has been reviewed and is appropriate. Review of Systems: General: No recent weight changes, no fever, no sleep disturbances Respiratory: No cough, no shortness of air, no recurring pulmonary infections Cardiovascular/peripheral vascular: No chest pain, no palpitations, no edema, no shortness of breath Gastrointestinal: No new onset incontinence, normal bowel movements reported Genitourinary: No new onset incontinence Musculoskeletal: neck pain, left shoulder pain Psychiatric: [Normal mood/affect] Neurological: [Denies weakness in extremities], [denies balance issues] Objective:: Physical Exam: General: Alert and oriented x3, no acute distress, pleasant and cooperative Lungs: Respirations even and unlabored, symmetrical chest expansion Eyes: PERRL Musculoskeletal: Flexion and extension of cervical [spine] somewhat guarded secondary to pain, positive Spurling's test Neurological: Speech clear, no gross sensory deficit Assessment:: Degenerative disc disease of cervical spine with cervical radiculopathy symptoms, myofascial pain, left shoulder pain Plan:: Patient continues to have worsening pain in her neck with radiating symptoms to her left shoulder. Patient did have limited range of motion of her cervical spine with a positive Spurling's test. I did review over again the risk and benefits of this injection and she would like to proceed forward with this plan of care. I have counseled the patient that the pregabalin she was prescribed is a very low dose and that I can send in a 2-week trial of pregabalin 50 mg at bedtime as well as send a 2-week supply of baclofen 5 mg twice daily as needed. Patient has tried and failed conservative therapy. Patient did have to stop physical therapy this week due to worsening pain symptoms. We will schedule the patient for a FELIZ C6-C7 under fluoroscopy where she does have severe neuroforaminal narrowing. Patient has been instructed to contact the clinic with any concerns before the next appointment. Dr. Brown has reviewed this note and agrees with this plan of care. This note was dictated using voice recognition software and make contain errors or omissions. [facility] Disclaimer: The information contained in this section may have been updated after the patient was seen, as this information can be updated by other users. Medical History Status post gamma knife treatment Lung cancer chemo for 5 years Surgical History H/O foot surgery History of appendectomy H/O kyphoplasty Family History Mother Rheumatic heart disease Cancer pancreatic Father Coronary artery disease Diabetes Social History Smoking Status: Never smoker alcohol intake: current alcohol intake frequency: 0-2 drinks per day substance use type: denies use current occupational status: other Travel in the last 8 weeks: None caffeine: Yes
== END 2024-03-14 23:59 | disposition home or self-care (01) ==
PROVIDERS: PCP Nurse Practitioner Family; Visit Provider Nurse Practitioner Family
DX: M50.123 Cervical disc disorder at C6-C7 level with radiculopathy (principal); M79.10 Myalgia, unspecified site; M25.512 Pain in left shoulder
CPT/HCPCS: 99212; G0463

== ENCOUNTER 2024-03-19 11:52 | Day surgery (SDC) | payer OTHER, SELFPAY ==
[2024-03-19 11:57] VITALS: BP 140/72; PULSE 69; RESP 18; TEMP 36.3; O2SAT 94; BMI 26.9
[2024-03-19 12:08] VITALS: BP 139/68; PULSE 70; RESP 18; O2SAT 98
[2024-03-19] MEDS: methylPREDNISolone ACETATE 80MG/ML VIAL 80 MG (12:08)
[2024-03-19 12:11] VITALS: BP 139/68; PULSE 70; RESP 18; O2SAT 98
[2024-03-19] MEDS: IOPAMIDOL-200 (41%);10ML VIAL 10 ML IV (12:14)
[2024-03-19 12:15] VITALS: BP 150/66; PULSE 60; RESP 16; O2SAT 94
--- NOTE | 2024-03-19 12:17 | P.PCN_ITS ---
Procedure Date: 03/19/24 Time: 12:00 Anesthesiologist:: Jerardo Anders CRNA Complications:: None Pre-procedure Diagnosis:: Degenerative disc cervical spine multilevels. Cervical radiculopathy. Post-procedure Diagnosis:: Same Indications for Procedure:: Patient is a pleasant 64-year-old female comes our clinic today for cervical epidural steroid injection. Patient reports cervical neck pain as well as bilateral arm radicular symptoms. She rates her pain 8/10 Procedure Details:: Procedure:Cervical epidural steroid injection Informed consent was obtained and the risks and benefits of the procedure were explained to the patient. The patient was taken to the procedure room and noninvasive monitors placed, including noninvasive blood pressure cuff and pulse oximeter. The neck was prepped using Chloraprep as a cleansing solution. The C6- C7 interspace was viewed using fluroscopy. The skin and subcutaneous tissues were anesthetized using lidocaine 1.5% and a 25-gauge needle. After this an 18- gauge Touhy epidural needle was placed into the C6-C7 interspace under fluroscopy guidance and advanced using loss of resistance to air until the epidural space was encountered. After confirmation of needle placement in the epidural space using contrast dye, a solution containing normal saline, 2 mL and Depo-Medrol 80 mg was incrementally injected into the cervical epidural space.~ The patient tolerated the procedure well with no complications. The patient was observed in the Pain Clinic and then discharged home neurologically intact. Plan and Disposition:: Patient was discharged without incident.
== END 2024-03-19 12:15 | disposition home or self-care (01) ==
PROVIDERS: PCP Nurse Practitioner Family; Visit Provider Nurse Anesthetist, Certified Registered
DX: M50.123 Cervical disc disorder at C6-C7 level with radiculopathy (principal)
CPT/HCPCS: 62321; J1010; Q9966

== ENCOUNTER 2024-04-01 14:34 | Outpatient (POV) | payer OTHER, SELFPAY ==
[2024-04-01 14:47] VITALS: BP 136/77; PULSE 70; RESP 18; O2SAT 97; BMI 26.9
--- NOTE | 2024-04-01 15:25 | A.OFFVIS_ITS ---
[facility] Pain Management SOAP Note Subjective:: When herPatient is a pleasant 64-year-old female who presents today for follow- up of cervical epidural steroid injection C6-C7 on 03/19/2024. Today she rates her pain at 1 out of 10. Patient states that she has had at least 80% improvement following this injection and feels like it is still helping. Patient does state that she has been able to increase her activity with decreased pain symptoms and feels much more functional. Patient does state that she is also continuing to go to physical therapy which is helping as well. Patient states that her pain has been much better that she has been able to even decrease her pregabalin that was prescribed to her and that ibuprofen she is decreased in use. At her last visit we did trial baclofen however she states that she really did not notice improvement nor did she have any side effects. She states in the past she has had tizanidine 2 mg and that this is worked well. She is asking if we can do this prescription. Her Du has been reviewed and is appropriate. Review of Systems: General: No recent weight changes, no fever, no sleep disturbances Respiratory: No cough, no shortness of air, no recurring pulmonary infections Cardiovascular/peripheral vascular: No chest pain, no palpitations, no edema, no shortness of breath Gastrointestinal: No new onset incontinence, normal bowel movements reported Genitourinary: No new onset incontinence Musculoskeletal: Neck pain Psychiatric: [Normal mood/affect] Neurological: [Denies weakness in extremities], [denies balance issues] Objective:: Physical Exam: General: Alert and oriented x3, no acute distress, pleasant and cooperative Lungs: Respirations even and unlabored, symmetrical chest expansion Eyes: PERRL Musculoskeletal: Flexion and extension of cervical [spine] somewhat guarded secondary to pain Neurological: Speech clear, no gross sensory deficit Assessment:: Degenerative disc disease of cervical spine with cervical radiculopathy symptoms, myofascial pain Plan:: Patient has had significant improvement following her injection and does not require any additional injection therapy. I will send in a prescription of tiza nidine 2 mg 2 times a day as needed and provide a 1 month supply of this medication. Patient will return to clinic in 1 month for reevaluation of symptoms and plan of care. Patient has been instructed to contact the clinic with any concerns before the next appointment. Dr. Brown has reviewed this note and agrees with this plan of care. This note was dictated using voice recognition software and make contain errors or omissions. [facility] Disclaimer: The information contained in this section may have been updated after the patient was seen, as this information can be updated by other users. Medical History Status post gamma knife treatment Lung cancer chemo for 5 years Surgical History H/O foot surgery History of appendectomy H/O kyphoplasty Family History Mother Rheumatic heart disease Cancer pancreatic Father Coronary artery disease Diabetes Social History Smoking Status: Never smoker alcohol intake: current alcohol intake frequency: 0-2 drinks per day substance use type: denies use current occupational status: other Travel in the last 8 weeks: None caffeine: Yes
== END 2024-04-01 23:59 | disposition home or self-care (01) ==
PROVIDERS: PCP Nurse Practitioner Family; Visit Provider Nurse Practitioner Family
DX: M50.123 Cervical disc disorder at C6-C7 level with radiculopathy (principal); M79.10 Myalgia, unspecified site
CPT/HCPCS: 99212; G0463

== ENCOUNTER 2024-04-04 11:00 | Outpatient (RCR) | payer OTHER, SELFPAY ==
--- NOTE | 2024-02-29 15:57 | HMH.PTOPEV ---
PT Outpatient Evaluation Rehab PT Outpatient Evaluation Start: 02/29/24 07:55 Freq: Status: Active Protocol: Document 02/29/24 07:57 RENATA (Rec: 02/29/24 09:58 RENATA [id number]) E-signed By Apurva Tellez, PT Outpatient Therapy Subjective History Subjective History This is an initial physical therapy evaluation for Shraddha Burks who presents with chronic neck pain that has been present for years. Pt reports a recent increase in her pain after hitting her upper shoulder/neck on a microwave door. Pt reports primarily left-sided neck and shoulder pain (some pain/ tension on right side but pain is worse on left). Pt reports she also used an exercise band that may have been too heavy leading to an exacerbation in her neck pain. Pt reports the pain as constant but variable (1-9/10) . Denies numbness tingling or burning. 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 Pt had a cervical steroid injection a week ago and reports significant relief. Pt with trigger point injections scheduled for next . Pt has had prior PT for neck pain and reports some relief. Pt's goal for physical therapy is to have some stretches and exercises that enhance my movement. To be able to relieve pain. PMH: Stage IV Lung cancer ( with spinal metastatis), hx of multiple foot surgeries, B CTS, kyphoplasty and shingles. Cervical MRI 02/21: Multilevel degenerative disc disease, C4- 5 annular bulge is present. New diagnosis of cancer in past 12 No: Lung cancer Stage IV months? diagnosis in Aug 2015 Chief Complaint Pain,Stiff Symptom Type Ache,Dull Symptoms Relieved By Heat,OTC Meds,Prescription Meds Symptoms Aggravated By Sitting,Physical Activity, Lifting Current Functional Limitations Lifting,Desk Work/Reading, Driving,Sleeping,Sitting, Recreation Activity Symptom Description Constant but Variable Level of pain today (0-10) 4 Pain scale - at its best (0-10) 1 Pain scale - at its worst (0-10) 9 Cervical Eval Palpation Cervical Muscles R Cervical Paraspinal,L Cervical Paraspinal,R Suboccipital,L Suboccipital,R SCM,L SCM,R Upper Trapezius,L Upper Trapezius,R Thoracic Paraspinals,L Thoracic Paraspinals Cervical/Thoracic Palpation Findings Tenderness Posture Head/C-Spine Posture Sitting Position Neutral Position Head/C-Spine Posture Standing Position Neutral Position Flexibility Deficits Upper Trapezius Muscle Length (R) Mild Tightness,(L) Moderate Tightness Levaetor Scapulae Muscle Length (R) Mild Tightness,(L) Moderate Tightness Passive Joint Mobility Cervical PIVM Dec: R C7/T1 L C7/T1 WNL: R C2/3 L C2/3 R C3/4 L C3/4 R C4/5 L C4/5 R C5/6 L C5/6 R C6/7 L C6/7 AROM Cervical Spine Extension Active Range of 48, mild discomfort Motion (degrees) Cervical Spine Flexion Active Range of 55, mild discomfort Motion (degrees) Cervical Spine Right Lateral Flexion 35, R pulling Active Range of Motion (degrees) Cervical Spine Left Lateral Flexion 30, R pulling Active Range of Motion (degrees) Cervical Spine Right Rotation Active 45 Range of Motion (degrees) Cervical Spine Left Rotation Active 45 Range of Motion (degrees) MMT Bilateral Deltoid (C5) 5 Normal Biceps Brachii Strength Grade 5 Normal Wrist Extension Strength Grade 5 Normal Triceps Brachii Strength Grade 5 Normal Wrist Flexion Strength Grade 5 Normal Special Test C-Spine Foraminal Compression (Spurling) Negative Left,Negative Right Test C-Spine Foraminal Distraction Test Negative Neck Disability Index Neck Disability Index Section 1: Pain Intensity The pain is very mild at moment Section 2: Personal Care (washing, I can look after myself dressing, etc.) normally but it causes extra pain Section 3: Lifting I can lift heavy weights but it gives extra pain Section 4: Reading I can read as much as I want to with slight pain in my neck Section 5: Headaches I have no headaches at all Section 6: Concentration I can concentrate fully when I want to with no difficulty Section 7: Work I can only do my usual work, but no more Section 8: Driving I can drive my car as long as I want with slight pain in my neck Section 9: Sleeping My sleep is slightly disturbed (less than 1 hr sleepless) Section 10: Recreation I am able to engage in all my recreation activities with some pain in NDI Score 8 Outpatient Therapy Assessment Impairments Problems/Impairmments Palpation Tenderness,Impaired Range of Motion,Impaired Strength,Impaired Lifting, Impaired Recreational Activities,Impaired Work Activities,Subjective C/O Pain Prognosis Rehab Potential Good Clinical Impression Consistent with Diagnosis Yes Consistent with Cervicalgia Short Term Goals Number of Weeks 2 Increase Range of Motion Yes: Improve L UT muscle length to mild tightness Decrease Subjective C/O Pain Yes: 5/10 at worst to decrease symptoms severity Patient to be Ind w/ HEP Yes Boot Turner Goals Number of Weeks 6 Decreased Palpation Tenderness Yes: 0-1/4 TTP L UT, thoracic paraspinals, and suboccipitals Increase Range of Motion Yes: WNL to improve daily function Improve Ability For Household Care Yes: Verbalize minimal pain levels when performing household care tasks. Return to Recreational Activities Yes: Verbalize minimal-no pain when playing piano. Improve Neck Disability Index Score Yes: 0-4 points reflecting min -no disability. Decrease Subjective C/O Pain Yes: At worst 2/10 to improve QOL and decrease symptom severity. Patient to be Ind w/ Advanced HEP Yes Outpatient Therapy Plan of Care Treatment Plan May Include Therapeutic Exercise Including Home Yes Exercise Program Manual Therapy Techniques Yes Neuromuscular Re-education Yes Therapeutic Activities to Return to Yes Previous Functional/Work Level ADL/Self Care Education Yes Mechanical Traction Yes Dry Needling Yes Thermal Modalities Yes Electrical Stimulation Yes Ultrasound/Phonophoresis Yes Iontophoresis Yes Massage Yes Eval/Re-Eval Yes Frequency Times per week 1-2 times Duration Number of Weeks 4-6 Addendums This patient is a candidate for social No or vocational rehab? Patient/Guardian verbally acknowledges Yes understanding of treatment program and consents to further treatment? Patient/Guardian verbally acknowledges Yes understanding of diagnosis, prognosis and goals for treatment? Eval Complexity PT Charges 90606 - Moderate Complexity Shoulder/Elbow Eval Shoulder Objective Measurements Elbow Objective Measurements PHYSICIAN CERTIFICATION: I certify the specified therapy services for Shraddha Burks are required, authorized, and reviewed every 30 days.
--- NOTE | 2024-03-28 13:47 | HMH.RHREAS ---
Rehab Reassessment Rehab OP Re-assessment Start: 02/29/24 07:55 Freq: Status: Active Protocol: Document 03/28/24 12:25 RENATA (Rec: 03/28/24 13:47 RENATA [email or web address]) E-signed By Apurva Tellez, PT Neck Disability Index Neck Disability Index Section 1: Pain Intensity The pain is very mild at moment Section 2: Personal Care (washing, I can look after myself dressing, etc.) normally without causing extra pain Section 3: Lifting I can lift heavy weights but it gives extra pain Section 4: Reading I can read as much as I want to with slight pain in my neck Section 5: Headaches I have no headaches at all Section 6: Concentration I can concentrate fully when I want to with slight difficulty Section 7: Work I can do as much work as I want to Section 8: Driving I can drive my car without any neck pain Section 9: Sleeping My sleep is slightly disturbed (less than 1 hr sleepless) Section 10: Recreation I am able to engage in all my recreation activities with some pain in NDI Score 6 Rehab Re-assessment Subjective Subjective Pt reports she feels 75% better since IE. Pt reports her muscle relaxers and nerve pain medication have helped ease her neck pain. Additionally, pt received a steroid injection in cervical spine since IE and reports some relief. Pt reports good adherence to HEP. Pain at worst: 5-6/10 Objective Objective Notes Palpation: 0/4 TTP L UT, thoracic paraspinals, and suboccipitals. Cervical AROM: - Flexion: WNL, non-painful - Extension: WNL, non-painful - LSB: Limited, 34 deg - RSB: Limited, 38 deg pulling - R rot: WNL, nonpainful - L rot: WNL, nonpainful NDI: 6 Assessment Progress Assessment Progressing as Expected Assessment Notes This is a reassessment for Shraddha Burks who presents to PT for c/o neck pain. Since IE, pt has been seen for 6 visits that have consisted of modalities prn, education, and therapeutic exercises focusing on neck ROM, DNF endurance, and posture. Pt with good attendance to all scheduled PT visits and reports good adherence to HEP. Since IE, pt with improvements in cervical AROM and pain reports. Pt still presents with subjective reports of pain and limited SBing and rotation in cervical spine. Pt would continue to benefit from skilled outpatient physical therapy to address remaining deficits. Patient goals met ST/3 LTG: In progress: 3 MET LTGs Plan Plan Continue POC for 2-3 more weeks. Frequency of Therapy 2x Duration of therapy 3 weeks Time and Billing Re-Eval Time 10 Re-Eval Billing Units 1 PHYSICIAN CERTIFICATION: I certify the specified therapy services for Shraddha Burks are required, authorized, and reviewed every 30 days.
== END 2024-04-04 12:10 | disposition home or self-care (01) ==
LOC: PT 11:00
PROVIDERS: Visit Provider Nurse Practitioner Family
DX: M54.2 Cervicalgia (principal)
CPT/HCPCS: 97010; 97110; 97140; 97163; 97164; 97535

== ENCOUNTER 2024-05-01 13:19 | Outpatient (POV) | payer OTHER, SELFPAY ==
[2024-05-01 13:40] VITALS: BP 136/67; PULSE 72; RESP 18; O2SAT 96; BMI 26.6
--- NOTE | 2024-05-01 14:17 | EXP.PAIN.SOA ---
[facility] Pain Management SOAP Note Subjective:: Patient is a pleasant 64-year-old female who presents today for 1 month follow-up. Today she rates her pain a 1 out of 10. She states she is still doing great following her cervical epidural that was back in February. She states that her pain is continued to maintain and overall feels much more functional following this injection. Patient is currently managed with tizanidine 2 mg twice a day. She denies any side effects from this medication. Her Du has been reviewed and is appropriate. Review of Systems: General: No recent weight changes, no fever, no sleep disturbances Respiratory: No cough, no shortness of air, no recurring pulmonary infections Cardiovascular/peripheral vascular: No chest pain, no palpitations, no edema, no shortness of breath Gastrointestinal: No new onset incontinence, normal bowel movements reported Genitourinary: No new onset incontinence Musculoskeletal: Neck pain Psychiatric: [Normal mood/affect] Neurological: [Denies weakness in extremities], [denies balance issues] Objective:: Physical Exam: General: Alert and oriented x3, no acute distress, pleasant and cooperative Lungs: Respirations even and unlabored, symmetrical chest expansion Eyes: PERRL Musculoskeletal: Flexion and extension of cervical [spine] somewhat guarded secondary to pain Neurological: Speech clear, no gross sensory deficit Assessment:: Degenerative disc disease of cervical spine with cervical radiculopathy symptoms, myofascial pain Plan:: Patient continues to get significant relief following her cervical epidural and does not require any additional injection therapy. I will send in a 3-month supply of her tizanidine. Patient will return to clinic in 3 months for reevaluation of symptoms and plan of care. Patient has been instructed to contact the clinic with any concerns before the next appointment. Dr. Brown has reviewed this note and agrees with this plan of care. This note was dictated using voice recognition software and make contain errors or omissions. [facility] Disclaimer: The information contained in this section may have been updated after the patient was seen, as this information can be updated by other users. Medical History Status post gamma knife treatment Lung cancer chemo for 5 years Surgical History H/O foot surgery History of appendectomy H/O kyphoplasty Family History Mother Rheumatic heart disease Cancer pancreatic Father Coronary artery disease Diabetes Social History Smoking Status: Never smoker alcohol intake: current alcohol intake frequency: 0-2 drinks per day substance use type: denies use current occupational status: other Travel in the last 8 weeks: None caffeine: Yes
== END 2024-05-01 23:59 | disposition home or self-care (01) ==
PROVIDERS: PCP Nurse Practitioner Family; Visit Provider Nurse Practitioner Family
DX: M50.10 Cervical disc disorder with radiculopathy, unspecified cervical region (principal); M79.10 Myalgia, unspecified site
CPT/HCPCS: 99212; G0463

== ENCOUNTER 2024-06-03 15:01 | Outpatient (CLI) | payer OTHER, SELFPAY ==
[2024-06-03 15:09] VITALS: BMI 26.6
[2024-06-03 15:27] LABS: Basophils % 0.3 % (0.1-2.0); Eosinophils # 0.1 K/mm3 (0.0-0.4); Hematocrit 40.3 % (37.0-47.0); Hemoglobin 13.2 g/dL (12.2-16.2); Lymphocytes # 1.4 K/mm3 (0.7-4.5); Lymphocytes % 23.7 % (10-50); Mean Corpuscular HGB Conc 32.7 g/dL (31.8-35.4); Mean Corpuscular Hemoglobin 31.9 pg (27.0-31.2); Mean Corpuscular Volume 97.4 fl (81-99); Monocytes # 0.4 K/mm3 (0.1-1.0); Monocytes % 6.3 % (1.7-9.3); Neutrophils # 4.1 K/mm3 (1.8-7.8); Neutrophils % 68.8 % (37.0-80.0); Platelet Count 196 K/mm3 (142-424); Red Blood Count 4.14 M/mm3 (4.20-5.40); Red Cell Distribution Width 13.8 % (11.5-17.5); White Blood Count 5.9 K/mm3 (4.8-10.8)
[2024-06-03 15:29] LABS: Chloride 106 mmol/L (98-107)
[2024-06-03 15:30] LABS: Potassium 4.3 mmoL/L (3.5-5.1); Sodium 137 mmol/L (136-145)
[2024-06-03 15:32] LABS: Alanine Aminotransferase 19 U/L (12-78); Albumin Level 3.9 g/dl (3.5-5.0); Albumin/Globulin Ratio 1.4 (1.1-1.8); Alkaline Phosphatase 78 U/L (38-126); Anion Gap 6.3 mEq/L (5-15); Aspartate Amino Transferase 25 U/L (14-36); Bilirubin,Total 0.3 mg/dl (0.2-1.3); Blood Urea Nitrogen 16 mg/dl (7-17); Carbon Dioxide 29 mmol/L (22.0-30.0); Creatinine Clearance Estimated 69 mL/min (50-200); Estimated Glomerular Filt Rate 84 ml/min (>60); GFR (African American) 102 ML/MIN (>60); Globulin 2.8 g/dL (1.3-3.2); Total Protein,Serum 6.7 g/dl (6.3-8.2)
[2024-06-03 15:33] LABS: Glucose 117 mg/dl (74-100)
== END 2024-06-03 15:26 | disposition home or self-care (01) ==
LOC: INF 15:05
PROVIDERS: PCP Nurse Practitioner Family; Visit Provider Internal Medicine Medical Oncology
DX: C34.12 Malignant neoplasm of upper lobe, left bronchus or lung (principal); C79.31 Secondary malignant neoplasm of brain
CPT/HCPCS: 36415; 80053; 85025

== ENCOUNTER 2024-06-05 08:37 | Outpatient (CLI) | payer OTHER, SELFPAY ==
--- NOTE | 2024-06-05 08:46 | CT_ITS ---
FINAL REPORT TECHNIQUE: Thin section axial images are obtained through the abdomen and pelvis after intravenous contrast. Reconstruction images were obtained from the axial data. Exam was performed using dose reduction techniques. CLINICAL HISTORY: f/u lung ca COMPARISON: None FINDINGS: LIVER: Several hypodense liver lesions may represent cysts or hemangiomas. GALLBLADDER/BILIARY SYSTEM: Gallbladder is present. No gallstones. No biliary dilatation. SPLEEN: Unremarkable. PANCREAS: Unremarkable. ADRENALS: Unremarkable. SYSTEM: Bilateral hypodense renal lesions are difficult to evaluate but may represent cysts. No hydronephrosis. Unremarkable urinary bladder. Uterus and ovaries are unremarkable. GI TRACT: No small bowel obstruction or dilatation. Moderate amount of retained stool in the colon. Normal appendix. No acute colon abnormality. LYMPH NODES/RETROPERITONEUM/MESENTERY: No lymphadenopathy. No abdominal aortic aneurysm. OTHER: No ascites. Remaining soft tissues without acute abnormality. BONES: No acute osseous abnormality. IMPRESSION: Hypodense liver lesions favored to represent cysts or hemangiomas. No convincing metastatic disease in the abdomen or pelvis. Reviewed, Interpreted and Dictated by Shannon Wei MD Transcribed by Shila Javier Authenticated and [facility]
--- NOTE | 2024-06-05 08:47 | CT_ITS ---
FINAL REPORT TECHNIQUE: Thin section axial images were obtained from the thoracic inlet through the upper abdomen after intravenous contrast injection. Reconstruction images were obtained from the axial data. Exam was performed using dose reduction technique. CLINICAL HISTORY: LUNG CANCER FINDINGS: There is no mediastinal, hilar, or axillary lymphadenopathy. There is no pleural or pericardial effusion. There is a somewhat wedge-shaped airspace disease in the posterior left upper lobe which may be related to radiation therapy. No discrete underlying mass is identified. Apical pleural nodularity on the right may be chronic or related to scar but without prior exam subtle pleural metastases is difficult to exclude. Lungs are otherwise clear. No acute osseous abnormality. IMPRESSION: Posterior left upper lobe airspace disease possibly related to treatment related changes. Pleural nodularity right upper lobe could be related to scar. However, without prior exam, pleural metastases is difficult to exclude Reviewed, Interpreted and Dictated by Shannon Wei MD Transcribed by Shila Javier Authenticated and [facility]
[2024-06-05] MEDS: SODIUM CHLORIDE 0.9% 10ML SYR (RAD ONLY) 10 ML IV (09:13)
[2024-06-05] MEDS: IOPAMIDOL-370 (76%);100ML BOTTLE 75 ML IV (09:13)
== END 2024-06-05 23:59 | disposition home or self-care (01) ==
LOC: RAD 08:38
PROVIDERS: PCP Nurse Practitioner Family; Visit Provider Internal Medicine Medical Oncology
DX: C34.90 Malignant neoplasm of unspecified part of unspecified bronchus or lung (principal)
CPT/HCPCS: 71260; 74177; Q9967

== ENCOUNTER 2024-06-24 09:13 | Outpatient (POV) | payer OTHER, SELFPAY ==
--- NOTE | 2024-06-24 09:32 | EXP.PAIN.SOA ---
[facility] Disclaimer: The information contained in this section may have been updated after the patient was seen, as this information can be updated by other users. Medical History Lung cancer chemo for 5 years Status post gamma knife treatment Surgical History H/O foot surgery H/O kyphoplasty History of appendectomy Family History Mother Rheumatic heart disease Cancer pancreatic Father Coronary artery disease Diabetes Social History Smoking Status: Never smoker alcohol intake: current alcohol intake frequency: 0-2 drinks per day substance use type: denies use current occupational status: other Travel in the last 8 weeks: None caffeine: Yes PM Subjective & Objective Subjective Subjective:: Patient is a pleasant 64-year-old female who presents today for follow-up. Today she rates her pain a 8 out of 10. Patient denies any new trauma or injury. She is experiencing worsening pain in her neck with radiating symptoms down into her left shoulder. She describes it as an aching, throbbing sensation with some numbness and tingling. It does interfere with her ability perform activities of daily living such as cooking and cleaning. Patient denies stye that she would like to try and repeat her last injection as it did work really well for this time and she feels like it is officially worn off. Patient is currently managed pregabalin 50 mg 3 times a day and cyclobenzaprine 10 mg at bedtime. She denies any side effects from this medication. She is requesting refills. She was prescribed tizanidine 2 mg however she states since she started taking calcium that she has not needed to take the tizanidine. Her Du has been reviewed and is appropriate. Review of Systems: General: No recent weight changes, no fever, no sleep disturbances Respiratory: No cough, no shortness of air, no recurring pulmonary infections Cardiovascular/peripheral vascular: No chest pain, no palpitations, no edema, no shortness of breath Gastrointestinal: No new onset incontinence, normal bowel movements reported Genitourinary: No new onset incontinence Musculoskeletal: neck pain, left shoulder pain Psychiatric: [Normal mood/affect] Neurological: [Denies weakness in extremities], [denies balance issues] Pain at rest (0-10 scale): 8 Objective Objective:: Physical Exam: General: Alert and oriented x3, no acute distress, pleasant and cooperative Lungs: Respirations even and unlabored, symmetrical chest expansion Eyes: PERRL Musculoskeletal: Flexion and extension of cervical [spine] somewhat guarded secondary to pain, [antalgic gait noted] positive Spurling's test Neurological: Speech clear, no gross sensory deficit Has patient had previous pain injection?: No Conservative treatment options previously tried: Home exercise plan Length of treatment: Longer than 12 weeks and Prescription medications Length of treatment: Longer than 12-week Meds Home Medications and Allergies Home Medications ?Medication ?Instructions ?Recorded ?Confirmed ?Type magnesium chloride 71.5 mg 2 tab PO DAILY MUSCLE CRAMPS 11/26/21 06/20/24 History (magnesium chloride) tablet,delayed release pediatric [id number] 1 each PO DAILY SUPPLEMNT 11/26/21 06/20/24 History potassium 99 mg tablet 2 tab PO HS Supplement 11/26/21 06/20/24 History calcium carbonate 2,000 mg PO DAILY PRN CALCIUM 05/16/23 06/20/24 History SUPPLEMENT estradiol 0.01% (0.1 mg/gram) 1 appful vaginal QHS PRN 05/24/23 06/20/24 Rx vaginal cream SUPPLEMENT 28 days #42.5 grams pregabalin 50 mg capsule 50 mg PO Q8H 30 days #90 caps 03/22/24 06/20/24 Rx tizanidine 2 mg tablet 2 mg PO BID PRN muscle spasticity 05/01/24 06/20/24 Rx #60 tabs aspirin 81 mg tablet,delayed 81 mg PO DAILY 06/05/24 06/20/24 History release (Adult Low Dose Aspirin) baclofen 5 mg tablet 5 mg PO TID PRN muscle spasm #90 06/20/24 06/20/24 Rx tabs cyclobenzaprine 10 mg tablet 10 mg PO HS PRN muscle spasm 06/20/24 History ibuprofen 800 mg tablet 800 mg PO TID PRN pain, mild 06/20/24 History omeprazole 20 mg capsule,delayed 20 mg PO DAILY To prevent 06/20/24 06/20/24 History release Ibuprofen's effects New Prescriptions to Start Prescriptions: Allergies Allergy/AdvReac Type Severity Reaction Status Date / Time gefitinib [From Iressa] Allergy Verified 06/20/24 11:21 doxycycline AdvReac Unknown Unknown Verified 06/20/24 11:21 allergy reaction Assessment and Plan *Assessment and plan (1) Cervical radiculopathy: Status: Acute Category: Medical Code(s): M54.12 - Radiculopathy, cervical region (2) Degenerative disc disease, cervical: Status: Acute Category: Medical Code(s): M50.30 - Other cervical disc degeneration, unspecified cervical region Plan Patient is experiencing worsening pain in her neck with radiating symptoms to her left shoulder with numbness and tingling. Patient did have limited range of motion of her cervical spine with a positive Spurling's test. I did discuss with patient that she may benefit from repeat cervical epidural steroid injection. Patient did previously have 1 in February that provided more than 80% relief up until the last 2 weeks. Patient did have improved function with this injection with overall decreased pain. Risk and benefits of repeat injection were explained to the patient and she would like to proceed forward with this plan of care. Patient has tried several conservative therapy including oral medications, heat and ice, topicals, physical therapy, continued at home stretching exercises for longer than 12 weeks. I will refill the patient's Flexeril and pregabalin provide I 1 month supply of these medications. Patient will be submitted for cervical epidural steroid injections C6-C7 under fluoroscopy. Patient has been instructed to contact the clinic with any concerns before the next appointment. Dr. Brown has reviewed this note and agrees with this plan of care. This note was dictated using voice recognition software and make contain errors or omissions. All injections are used with Lidocaine or Bupivacaine and Depo Medrol.
[2024-06-24 11:38] VITALS: BP 139/76; PULSE 84; RESP 18; O2SAT 97; BMI 26.6
== END 2024-06-24 23:59 | disposition home or self-care (01) ==
PROVIDERS: PCP Nurse Practitioner Family; Visit Provider Nurse Practitioner Family
DX: M50.10 Cervical disc disorder with radiculopathy, unspecified cervical region (principal); Z73.89 Other problems related to life management difficulty; Z85.118 Personal history of other malignant neoplasm of bronchus and lung
CPT/HCPCS: 99212; G0463

== ENCOUNTER 2024-06-24 14:55 | Outpatient (CLI) | payer OTHER, SELFPAY ==
--- NOTE | 2024-06-24 14:55 | CA_ITS ---
APPROVED REPORT EXAM: Comprehensive 2D, Doppler, and color-flow Echocardiogram Poacher Operator: Maggie Patino RDCS Ht: 5 ft 7 in Wt: 174lbs BSA: 1.91 BP: 118/80 mmHg Indications: MURMUR,H/O LUNG CA M-Mode Dimensions RVDd 1.85 cm (0.9-2.6) LA Diam 3.39 cm (1.9-4.0) LVDd 5.59 cm (3.5-5.7) LVDs 4.08 cm (3.5-5.7) IVSd 0.72 cm (0.6-1.1) PWd 0.78 cm (0.6-1.1) EF (Teich) 52.00% FS 27.00% EDV (Teich) 153.00 mL TAPSE 2.23 (<1.7) ESV (Teich) 73.40 mL LV Diastology E Decel Time 197 (160-240 msec) E/A Ratio 1.3 Mitral Valve MV E Max Alberto. 98.0 (40-130 cm/s) MV A Velocity 74.0 (40-130 cm/s) E/A Ratio 1.31 MV PHT 58.0 ms Tricuspid Valve TR P. Velocity 243.00 cm/s RAP Estimate 10.00 mmHg RVSP 33.60 mmHg Left Ventricle The left ventricle is normal size. The left ventricular systolic function is normal. The left ventricular ejection fraction is within the normal range. There is normal left ventricular wall thickness. There is normal LV segmental wall motion. Diastolic function is indeterminate. LVEF is 55%. Right Ventricle Right ventricle is mildly dilated. The right ventricular systolic function is normal. Atria Left atrium is mildly dilated. Right atrium is mildly dilated. The interatrial septum is not well-visualized. Aortic Valve Aortic valve opens well. There is no aortic valvular stenosis. No aortic regurgitation is present. Mitral Valve The mitral valve is normal in structure. No evidence of mitral valve stenosis. Mild mitral regurgitation. Tricuspid Valve The tricuspid valve leaflets are thin and pliable. Mild tricuspid regurgitation. RVSP is 12 mmHg plus RA pressure. Pulmonic Valve The pulmonary valve is normal in structure. Mild pulmonic regurgitation. Great Vessels The aortic root is normal in size. The ascending aorta is normal in size. The IVC is not well-visualized. Pericardium There is no pericardial effusion. Other Information Study Quality: Fair Conclusion Normal biventricular systolic function. Mild RV dilation. Mild biatrial dilation. Mild MR, mild TR, mild PI. Electronically signed by : Vicky Huang MD 06/25/2024 12:33:07
== END 2024-06-24 23:59 | disposition home or self-care (01) ==
LOC: RT 14:55
PROVIDERS: PCP Nurse Practitioner Family; Visit Provider Nurse Practitioner Family
DX: R01.1 Cardiac murmur, unspecified (principal)
CPT/HCPCS: 93306

== ENCOUNTER 2024-09-09 13:21 | Outpatient (POV) | payer OTHER, SELFPAY ==
--- NOTE | 2024-09-09 13:59 | EXP.PAIN.SOA ---
[facility] Disclaimer: The information contained in this section may have been updated after the patient was seen, as this information can be updated by other users. Medical History Lung cancer chemo for 5 years Status post gamma knife treatment Surgical History H/O foot surgery H/O kyphoplasty History of appendectomy Family History Mother Rheumatic heart disease Cancer pancreatic Father Coronary artery disease Diabetes Social History Smoking Status: Never smoker alcohol intake: current alcohol intake frequency: 0-2 drinks per day substance use type: denies use current occupational status: other Travel in the last 8 weeks: None caffeine: Yes PM Subjective & Objective Subjective Subjective:: Patient is a pleasant 64-year-old female who presents today for follow-up. Patient rates her pain today a 2 out of 10. Patient does state that she was scheduled for her cervical injection however where it was scheduled out a couple of weeks by the time it came close to that appointment her pain had dissipated and she was doing okay and she canceled that injection. Patient states overall she has been maintaining well with no complications. Patient does state that she will occasionally still have some left shoulder pain with some tightness. Patient does workout 4-5 times per week. Patient does state that from time to time she will feel like she has a little bit more spasms or cramping in her lower calves and that the tizanidine 2 mg helps better than the Flexeril at those times. Patient is asking whether she is able to take the Flexeril and the tizanidine at the same time. Patient is also managed with pregabalin 50 mg 3 times a day however she states she is only taking this at bedtime because it does seem to make her more drowsy. Her Du has been reviewed and is appropriate. Review of Systems: General: No recent weight changes, no fever, no sleep disturbances Respiratory: No cough, no shortness of air, no recurring pulmonary infections Cardiovascular/peripheral vascular: No chest pain, no palpitations, no edema, no shortness of breath Gastrointestinal: No new onset incontinence, normal bowel movements reported Genitourinary: No new onset incontinence Musculoskeletal: Neck pain, shoulder pain Psychiatric: [Normal mood/affect] Neurological: [Denies weakness in extremities], [denies balance issues] Pain at rest (0-10 scale): 2 Objective Objective:: Physical Exam: General: Alert and oriented x3, no acute distress, pleasant and cooperative Lungs: Respirations even and unlabored, symmetrical chest expansion Eyes: PERRL Musculoskeletal: Flexion and extension of cervical [spine] within normal limits Neurological: Speech clear, no gross sensory deficit Has patient had previous pain injection?: No Conservative treatment options previously tried: Home exercise plan Length of treatment: Longer than 12 weeks Meds Home Medications and Allergies Home Medications ?Medication ?Instructions ?Recorded ?Confirmed ?Type magnesium chloride 71.5 mg 2 tab PO DAILY MUSCLE CRAMPS 11/26/21 06/24/24 History (magnesium chloride) tablet,delayed release pediatric [id number]-[id number]-[id number] 1 each PO DAILY SUPPLEMNT 11/26/21 06/24/24 History potassium 99 mg tablet 2 tab PO HS Supplement 11/26/21 06/24/24 History calcium carbonate 2,000 mg PO DAILY PRN CALCIUM 05/16/23 06/24/24 History SUPPLEMENT estradiol 0.01% (0.1 mg/gram) 1 appful vaginal QHS PRN 05/24/23 06/24/24 Rx vaginal cream SUPPLEMENT 28 days #42.5 grams tizanidine 2 mg tablet 2 mg PO BID PRN muscle spasticity 05/01/24 06/24/24 Rx #60 tabs aspirin 81 mg tablet,delayed 81 mg PO DAILY 06/05/24 06/24/24 History release (Adult Low Dose Aspirin) baclofen 5 mg tablet 5 mg PO TID PRN muscle spasm #90 06/20/24 06/24/24 Rx tabs ibuprofen 800 mg tablet 800 mg PO TID PRN pain, mild 06/20/24 06/24/24 History omeprazole 20 mg capsule,delayed 20 mg PO DAILY To prevent 06/20/24 06/24/24 History release Ibuprofen's effects cyclobenzaprine 10 mg tablet 10 mg PO HS PRN muscle spasm #30 06/24/24 Rx tabs pregabalin 50 mg capsule 50 mg PO Q8H 30 days #90 caps 06/24/24 Rx New Prescriptions to Start Prescriptions: Allergies Allergy/AdvReac Type Severity Reaction Status Date / Time gefitinib [From Iressa] Allergy Verified 06/20/24 11:21 doxycycline AdvReac Unknown Unknown Verified 06/20/24 11:21 allergy reaction Assessment and Plan *Assessment and plan (1) Degenerative disc disease, cervical: Status: Acute Category: Medical Code(s): M50.30 - Other cervical disc degeneration, unspecified cervical region (2) Cervical radiculopathy: Status: Acute Category: Medical Code(s): M54.12 - Radiculopathy, cervical region (3) Left shoulder pain: Status: Acute Qualifiers: Chronicity: acute Qualified Code(s): M25.512 - Pain in left shoulder Category: Medical Code(s): M25.512 - Pain in left shoulder Plan Patient overall is maintaining and does not require any additional injection interventions. I did discuss with the patient that I will send in a 90-day supply of the pregabalin at the 50 mg at bedtime as well as refills on her Flexeril 10 mg at bedtime. Patient will return to clinic in 3 months for reevaluation of symptoms and plan of care. Patient has been instructed to contact the clinic with any concerns before the next appointment. Dr. Brown has reviewed this note and agrees with this plan of care. This note was dictated using voice recognition software and make contain errors or omissions. All injections are used with Lidocaine or Bupivacaine and Depo Medrol.
[2024-09-09 14:37] VITALS: BP 140/70; PULSE 73; RESP 16; O2SAT 95; BMI 26.6
== END 2024-09-09 23:59 | disposition home or self-care (01) ==
PROVIDERS: PCP Nurse Practitioner Family; Visit Provider Nurse Practitioner Family
DX: M50.10 Cervical disc disorder with radiculopathy, unspecified cervical region (principal); M25.512 Pain in left shoulder
CPT/HCPCS: 99212; G0463

== ENCOUNTER 2024-12-10 09:10 | Outpatient (CLI) | payer OTHER, SELFPAY ==
--- NOTE | 2024-12-10 09:11 | CT_ITS ---
FINAL REPORT TECHNIQUE: After the administration of oral and intravenous contrast, axial images were obtained through the abdomen and pelvis by computed tomography. The study was performed with techniques to keep radiation dose as low as reasonably achievable, (ALARA). Individual dose reduction techniques using automated exposure control or adjustment of mA and/or kV according to the patient's size were employed. CLINICAL HISTORY: lung neoplasm, PO/IV COMPARISON: 06/05/2024 FINDINGS: Abdomen: There are benign-appearing cysts in the right lobe of the liver. The largest is located in the mid right lobe measuring 2.0 cm in greatest dimension. The gallbladder is present. The spleen, pancreas, adrenals and kidneys appear unremarkable. There is a benign-appearing cyst in the right kidney measuring up to 2.2 cm. The aorta is normal in caliber. There is no free fluid or adenopathy. Pelvis: The appendix is not identified. The urinary bladder is distended. There are extensive calcifications and hypertrophy of the lower lumbar facet joints. Significant compromise of the right side of the spinal canal is noted at the L2-3 level. There is marked compression deformity of the L2 vertebra with associated kyphoplasty. IMPRESSION: Cysts in the liver and right kidney. Compression deformity of the L2 vertebra with kyphoplasty, stable. No new mass identified. Reviewed, Interpreted and Dictated by Aaron Gaviria MD Transcribed by Shila Javier Authenticated and [facility]
--- NOTE | 2024-12-10 09:11 | CT_ITS ---
FINAL REPORT TECHNIQUE: Routine axial images were obtained from the lung apices to below the diaphragm following IV contrast administration. Individualized dose reduction techniques using automated exposure control or adjustment of the mA and/or kV according to the patient size were employed. CLINICAL HISTORY: lung neoplasm PO/IV COMPARISON: 06/05/2024 FINDINGS: The mediastinal vasculature is well-opacified. No significant mediastinal mass or adenopathy identified. No pleural or pericardial effusion is seen. Again noted is an area of dense linear pleural and parenchymal thickening in the posterior left upper lobe which appears stable compared to the prior study and is probably related to scarring from posttreatment change. Chronic changes are noted at the lung bases. IMPRESSION: Chronic changes without new mass identified. Reviewed, Interpreted and Dictated by Aaron Gaviria MD Transcribed by Shila Javier Authenticated and [facility]
[2024-12-10 09:32] LABS: Albumin Level 4.4 g/dl (3.5-5.0); Chloride 101 mmol/L (98-107); Sodium 134 mmol/L (136-145)
[2024-12-10 09:33] LABS: Potassium 4.3 mmoL/L (3.5-5.1)
[2024-12-10 09:35] LABS: Alanine Aminotransferase 27 U/L (12-78); Albumin/Globulin Ratio 1.5 (1.1-1.8); Alkaline Phosphatase 72 U/L (38-126); Anion Gap 7.3 mEq/L (5-15); Aspartate Amino Transferase 34 U/L (14-36); Bilirubin,Total 0.5 mg/dl (0.2-1.3); Blood Urea Nitrogen 12 mg/dl (7-17); Carbon Dioxide 30 mmol/L (22.0-30.0); Estimated Glomerular Filt Rate 84 ml/min (>60); GFR (African American) 102 ML/MIN (>60); Globulin 2.9 g/dL (1.3-3.2); Total Protein,Serum 7.3 g/dl (6.3-8.2)
[2024-12-10 09:36] LABS: Calcium 9.8 mg/dl (8.4-10.2); Glucose 107 mg/dl (74-100)
[2024-12-10 09:55] LABS: Basophils % 0.5 % (0.1-2.0); Eosinophils # 0.1 K/mm3 (0.0-0.4); Eosinophils % 3.4 % (0.1-12.0); Hematocrit 44.4 % (37.0-47.0); Hemoglobin 14.7 g/dL (12.2-16.2); Lymphocytes # 1.7 K/mm3 (0.7-4.5); Lymphocytes % 41.3 % (10-50); Mean Corpuscular HGB Conc 33.1 g/dL (31.8-35.4); Mean Corpuscular Hemoglobin 30.4 pg (27.0-31.2); Mean Corpuscular Volume 91.9 fl (81-99); Mean Platelet Volume 10.2 fl (7.4-10.4); Monocytes # 0.4 K/mm3 (0.1-1.0); Monocytes % 10.3 % (1.7-9.3); Neutrophils # 1.8 K/mm3 (1.8-7.8); Neutrophils % 44.3 % (37.0-80.0); Platelet Count 202 K/mm3 (142-424); Red Blood Count 4.83 M/mm3 (4.20-5.40); Red Cell Distribution Width 13.2 % (11.5-17.5); White Blood Count 4.2 K/mm3 (4.8-10.8)
[2024-12-10] MEDS: IOPAMIDOL-370 (76%);100ML BOTTLE 75 ML IV (09:58)
[2024-12-10] MEDS: BARIUM SULFATE(READI-CAT2);450ML BOTTLE 450 ML PO (09:58)
[2024-12-10] MEDS: SODIUM CHLORIDE 0.9% 10ML SYR (RAD ONLY) 10 ML IV (09:58)
== END 2024-12-10 23:59 | disposition home or self-care (01) ==
LOC: RAD 09:11
PROVIDERS: PCP Nurse Practitioner Family; Visit Provider Internal Medicine Medical Oncology
DX: C34.90 Malignant neoplasm of unspecified part of unspecified bronchus or lung (principal)
CPT/HCPCS: 36415; 71260; 74177; 80053; 85025; Q9967

== ENCOUNTER 2024-12-11 14:53 | Outpatient (POV) | payer OTHER, SELFPAY ==
[2024-12-11 15:13] VITALS: BP 133/67; PULSE 72; RESP 16; O2SAT 97; BMI 27.4
--- NOTE | 2024-12-11 15:19 | EXP.PAIN.SOA ---
[facility] Disclaimer: The information contained in this section may have been updated after the patient was seen, as this information can be updated by other users. Medical History Status post gamma knife treatment Lung cancer chemo for 5 years Surgical History H/O foot surgery History of appendectomy H/O kyphoplasty Family History Mother Rheumatic heart disease Cancer pancreatic Father Coronary artery disease Diabetes Social History Smoking Status: Never smoker alcohol intake: current alcohol intake frequency: 0-2 drinks per day substance use type: denies use current occupational status: other Travel in the last 8 weeks: None caffeine: Yes PM Subjective & Objective Subjective Subjective:: Patient is a pleasant 64-year-old female who presents today for 3-month follow-up. Today she rates her pain a 1 out of 10. She denies any new trauma or injury. She states overall she is doing really well between the combination of Flexeril and pregabalin that she takes at bedtime. She does make mention that sometimes she feels like she has increased drowsiness that does carryover into the next day due to the Flexeril. Patient is currently managed with pregabalin 50 mg at bedtime as needed and Flexeril 10 mg at bedtime. Her Du has been reviewed and is appropriate. Review of Systems: General: No recent weight changes, no fever, no sleep disturbances Respiratory: No cough, no shortness of air, no recurring pulmonary infections Cardiovascular/peripheral vascular: No chest pain, no palpitations, no edema, no shortness of breath Gastrointestinal: No new onset incontinence, normal bowel movements reported Genitourinary: No new onset incontinence Musculoskeletal: Neck pain Psychiatric: [Normal mood/affect] Neurological: [Denies weakness in extremities], [denies balance issues] Pain at rest (0-10 scale): 1 Objective Objective:: Physical Exam: General: Alert and oriented x3, no acute distress, pleasant and cooperative Lungs: Respirations even and unlabored, symmetrical chest expansion Eyes: PERRL Musculoskeletal: Flexion and extension of cervical spine within normal limits Neurological: Speech clear, no gross sensory deficit Has patient had previous pain injection?: No Conservative treatment options previously tried: Home exercise plan Length of treatment: Longer than 12 weeks Meds Home Medications and Allergies Home Medications ?Medication ?Instructions ?Recorded ?Confirmed ?Type pediatric eimyxzia-dfdb-jjx 1 each PO DAILY SUPPLEMNT 11/26/21 12/11/24 History potassium 99 mg tablet 2 tab PO HS Supplement 11/26/21 12/11/24 History estradiol 0.01% (0.1 mg/gram) 1 appful vaginal QHS PRN 05/24/23 12/11/24 Rx vaginal cream SUPPLEMENT 28 days #42.5 grams tizanidine 2 mg tablet 2 mg PO BID PRN muscle spasticity 05/01/24 12/11/24 Rx #60 tabs aspirin 81 mg tablet,delayed 81 mg PO DAILY 06/05/24 12/11/24 History release (Adult Low Dose Aspirin) baclofen 5 mg tablet 5 mg PO TID PRN muscle spasm #90 06/20/24 12/11/24 Rx tabs ibuprofen 800 mg tablet 800 mg PO TID PRN pain, mild 06/20/24 12/11/24 History omeprazole 20 mg capsule,delayed 20 mg PO DAILY To prevent 06/20/24 12/11/24 History release Ibuprofen's effects cyclobenzaprine 10 mg tablet 10 mg PO HS PRN muscle spasm #90 09/09/24 12/11/24 Rx tabs pregabalin 50 mg capsule 50 mg PO HS 30 days #90 caps 09/09/24 12/11/24 Rx biotin 10,000 mcg capsule 10,000 mcg PO DAILY Help my skin 12/11/24 12/11/24 History calcium 600 mg (as carbonate)-vit 1 tab PO BID 12/11/24 12/11/24 History D3 10 mcg (400 unit) chewable tablet (Calcium 600 with Vitamin D3) coQ10 (ubiquinol) 100 mg capsule 100 mg PO BID 12/11/24 12/11/24 History (Qunol Juvencio CoQ10) oseltamivir 75 mg capsule (Tamiflu) 75 mg PO DAILY 2 weeks #14 caps 12/11/24 12/11/24 Rx New Prescriptions to Start Prescriptions: Allergies Allergy/AdvReac Type Severity Reaction Status Date / Time gefitinib (From Iressa) Allergy Verified 12/11/24 13:33 doxycycline AdvReac Unknown Unknown Verified 12/11/24 13:33 allergy reaction Assessment and Plan *Assessment and plan (1) Neck pain: Status: Acute Category: Medical Code(s): M54.2 - Cervicalgia (2) Degenerative disc disease, cervical: Status: Acute Category: Medical Code(s): M50.30 - Other cervical disc degeneration, unspecified cervical region (3) Cervical radiculopathy: Status: Acute Category: Medical Code(s): M54.12 - Radiculopathy, cervical region Plan Patient has continued to do well and does not require any additional injections. Patient has in the past done really great with her cervical epidural and with the combination medications is maintaining. I did discuss with the patient due to her increased drowsiness with the Flexeril that I will change it to 5 mg twice daily and that she can try the lower dosage and see if it does subside some of the extra fatigue and grogginess the following day. I will also refill the pregabalin and provide a 3-month supply of both of these medications. Patient will return to clinic in 3 months for reevaluation of symptoms and plan of care. Patient has been instructed to contact the clinic with any concerns before the next appointment. Dr. Brown has reviewed this note and agrees with this plan of care. This note was dictated using voice recognition software and make contain errors or omissions. All injections are used with Lidocaine, Bupivacaine and Depo Medrol. Occasionally urine drug screen is needed to verify patient's compliance with our office pain contract. This is ordered based off specific treatments related to chronic pain with the potential to abuse certain medications.
== END 2024-12-11 23:59 | disposition home or self-care (01) ==
PROVIDERS: PCP Nurse Practitioner Family; Visit Provider Nurse Practitioner Family
DX: M50.10 Cervical disc disorder with radiculopathy, unspecified cervical region
CPT/HCPCS: 99212; G0463

== ENCOUNTER 2025-03-10 14:56 | Outpatient (POV) | payer OTHER, SELFPAY ==
[2025-03-10 15:10] VITALS: BP 128/85; PULSE 70; RESP 14; O2SAT 99; BMI 27.4
--- NOTE | 2025-03-10 15:28 | EXP.PAIN.SOA ---
[facility] Disclaimer: The information contained in this section may have been updated after the patient was seen, as this information can be updated by other users. Medical History Status post gamma knife treatment Lung cancer chemo for 5 years Surgical History H/O foot surgery History of appendectomy H/O kyphoplasty Family History Mother Rheumatic heart disease Cancer pancreatic Father Coronary artery disease Diabetes Social History Smoking Status: Never smoker alcohol intake: current alcohol intake frequency: 0-2 drinks per day substance use type: denies use current occupational status: other Travel in the last 8 weeks: None caffeine: Yes PM Subjective & Objective Subjective Subjective:: Patient is a pleasant 65-year-old female who presents today for worsening neck and left shoulder pain. Patient does state that she has not had any new falls or injuries. She does state that she was getting ready for Easter and everything this with family and Monday her pain just seem to get much worse. Patient states that nothing seems to make it better. She states that she has tried the heat, TENS unit, her Flexeril and Lyrica and it is just constant. She states the pain will not let up and it is interfering with her ability to perform activities of daily living such as cooking and cleaning. Patient does state that she believes she needs refill on her Lyrica and Flexeril. Patient has previously had injections in the past that did provide significant relief and worked well up until not helped. Patient denies any other changes. Her Du has been reviewed and is appropriate. Review of Systems: General: No recent weight changes, no fever, no sleep disturbances Respiratory: No cough, no shortness of air, no recurring pulmonary infections Cardiovascular/peripheral vascular: No chest pain, no palpitations, no edema, no shortness of breath Gastrointestinal: No new onset incontinence, normal bowel movements reported Genitourinary: No new onset incontinence Musculoskeletal: Neck pain, left shoulder pain, muscle tightness Psychiatric: [Normal mood/affect] Neurological: [Denies weakness in extremities], [denies balance issues] Pain at rest (0-10 scale): 9 Objective Objective:: Physical Exam: General: Alert and oriented x3, no acute distress, pleasant and cooperative Lungs: Respirations even and unlabored, symmetrical chest expansion Eyes: PERRL Musculoskeletal: Flexion and extension of cervical [spine] somewhat guarded secondary to pain, [antalgic gait noted] positive Spurling's test Neurological: Speech clear, no gross sensory deficit Has patient had previous pain injection?: No Conservative treatment options previously tried: Home exercise plan Length of treatment: Longer than 12-week Meds Home Medications and Allergies Home Medications ?Medication ?Instructions ?Recorded ?Confirmed ?Type pediatric nyzhokgo-lixu-zro 1 each PO DAILY SUPPLEMNT 11/26/21 03/10/25 History potassium 99 mg tablet 2 tab PO HS Supplement 11/26/21 03/10/25 History estradiol 0.01% (0.1 mg/gram) 1 appful vaginal QHS PRN 05/24/23 03/10/25 Rx vaginal cream SUPPLEMENT 28 days #42.5 grams tizanidine 2 mg tablet 2 mg PO BID PRN muscle spasticity 05/01/24 03/10/25 Rx #60 tabs aspirin 81 mg tablet,delayed 81 mg PO DAILY 06/05/24 03/10/25 History release (Adult Low Dose Aspirin) baclofen 5 mg tablet 5 mg PO TID PRN muscle spasm #90 06/20/24 03/10/25 Rx tabs omeprazole 20 mg capsule,delayed 20 mg PO DAILY To prevent 06/20/24 03/10/25 History release Ibuprofen's effects cyclobenzaprine 10 mg tablet 10 mg PO HS PRN muscle spasm #90 09/09/24 03/10/25 Rx tabs biotin 10,000 mcg capsule 10,000 mcg PO DAILY Help my skin 12/11/24 03/10/25 History calcium 600 mg (as carbonate)-vit 1 tab PO BID 12/11/24 03/10/25 History D3 10 mcg (400 unit) chewable tablet (Calcium 600 with Vitamin D3) coQ10 (ubiquinol) 100 mg capsule 100 mg PO BID 12/11/24 03/10/25 History (Qunol Juvencio CoQ10) cyclobenzaprine 5 mg tablet 5 mg PO BID #180 tabs 12/11/24 03/10/25 Rx oseltamivir 75 mg capsule (Tamiflu) 75 mg PO DAILY 2 weeks #14 caps 12/11/24 03/10/25 Rx pregabalin 50 mg capsule 50 mg PO HS 30 days #90 caps 12/11/24 03/10/25 Rx ibuprofen 800 mg tablet 800 mg PO Q8H PRN pain #90 tabs 01/13/25 03/10/25 Rx New Prescriptions to Start Prescriptions: Allergies Allergy/AdvReac Type Severity Reaction Status Date / Time gefitinib (From Iressa) Allergy Verified 12/11/24 13:33 doxycycline AdvReac Unknown Unknown Verified 12/11/24 13:33 allergy reaction Assessment and Plan *Assessment and plan (1) Cervical radiculopathy: Status: Acute Category: Medical Code(s): M54.12 - Radiculopathy, cervical region (2) Degenerative disc disease, cervical: Status: Acute Category: Medical Code(s): M50.30 - Other cervical disc degeneration, unspecified cervical region (3) Myofascial pain: Status: Acute Category: Medical Code(s): M79.18 - Myalgia, other site Plan Patient is experiencing worsening pain in her neck that does radiate primarily onto the left shoulder and going into her upper forearm. Patient did have limited range of motion of her cervical spine with a positive Spurling's test. Patient did also have point tenderness along her bilateral cervical paraspinous and trapezius muscles. I did discuss with the patient that I do believe she would benefit from a repeat cervical epidural steroid injection. Risk and benefits were discussed with the patient and she would like to proceed forward with this plan of care. Patient has tried and failed conservative therapy including oral medication, heat and ice, topicals, at home stretching exercise for longer than 12 weeks. Patient has also had physical therapy in the past. Patient has had a cervical epidural back in February 2024 that did provide 80% improvement and has lasted over this entire year up until around Monday. Patient will be scheduled for a cervical epidural steroid injection C6 or C7 under fluoroscopy. I will also send refills of her Lyrica and Flexeril and send in a temporary dose of journavx 50 mg twice daily with a 2-week supply. Patient will also be given a tentative 3-month follow-up for her Lyrica and Flexeril medications. Patient agrees with this plan of care. Patient was unable to get in for a epidural here in our [place] location until around April 10. We will send her to the [place] location to see if we can get this much sooner due to the worsening pain symptoms. Patient agrees with this plan of care. Patient has been instructed to contact the clinic with any concerns before the next appointment. Dr. Brown has reviewed this note and agrees with this plan of care. This note was dictated using voice recognition software and make contain errors or omissions. All injections are used with Lidocaine, Bupivacaine and Depo Medrol. Occasionally urine drug screen is needed to verify patient's compliance with our office pain contract. This is ordered based off specific treatments related to chronic pain with the potential to abuse certain medications.
== END 2025-03-10 23:59 | disposition home or self-care (01) ==
PROVIDERS: PCP Nurse Practitioner Family; Visit Provider Nurse Practitioner Family
DX: M50.10 Cervical disc disorder with radiculopathy, unspecified cervical region (principal); M79.18 Myalgia, other site; Z73.89 Other problems related to life management difficulty
CPT/HCPCS: 99212; G0463

== ENCOUNTER 2025-03-18 09:58 | Day surgery (SDC) | payer OTHER, SELFPAY ==
[2025-03-18 10:00] VITALS: BP 128/56; PULSE 72; RESP 16; TEMP 36.6; O2SAT 96; BMI 27.4
[2025-03-18 10:05] VITALS: BP 143/74; PULSE 75; RESP 18; O2SAT 95
[2025-03-18] MEDS: DEXAMETHASONE 10MG/ML 1ML VIAL 10 MG (10:10)
[2025-03-18] MEDS: IOPAMIDOL-200 (41%);10ML VIAL 2 ML IV (10:11)
--- NOTE | 2025-03-18 10:20 | P.PCN_ITS ---
Procedure Date: 03/18/25 Time: 10:10 Anesthesiologist:: Jerardo Anders CRNA Complications:: None Pre-procedure Diagnosis:: Degenerative disc cervical spine multilevels. Cervical radiculopathy. Multilevel cervical disc bulge. Cervical spondylosis. Multilevel cervical facet arthropathy. Post-procedure Diagnosis:: Same. Indications for Procedure:: Patient is a pleasant 65-year-old female who comes our clinic today for cervical epidural steroid injection. Patient describes cervical neck pain as well as left shoulder radiculopathy. She rates her pain 7/10. Procedure Details:: Procedure:Cervical epidural steroid injection Informed consent was obtained and the risks and benefits of the procedure were explained to the patient. The patient was taken to the procedure room and noninvasive monitors placed, including noninvasive blood pressure cuff and pulse oximeter. The neck was prepped using Chloraprep as a cleansing solution. The C6- C7 interspace was viewed using fluroscopy. The skin and subcutaneous tissues were anesthetized using lidocaine 1.5% and a 25-gauge needle. After this an 18- gauge Touhy epidural needle was placed into the C6-C7 interspace under fluroscopy guidance and advanced using loss of resistance to air until the epidural space was encountered. After confirmation of needle placement in the epidural space using contrast dye, a solution containing normal saline, 2 mL and Depo-Medrol 80 mg was incrementally injected into the cervical epidural space.~ The patient tolerated the procedure well with no complications. The patient was observed in the Pain Clinic and then discharged home neurologically intact. Plan and Disposition:: Patient was discharged without incident.
[2025-03-18 10:21] VITALS: BP 125/71; PULSE 64; RESP 16; O2SAT 96
== END 2025-03-18 10:21 | disposition home or self-care (01) ==
PROVIDERS: PCP Nurse Practitioner Family; Visit Provider Nurse Anesthetist, Certified Registered
DX: M50.30 Other cervical disc degeneration, unspecified cervical region (principal); M47.22 Other spondylosis with radiculopathy, cervical region
CPT/HCPCS: 62321; J1100; Q9966

== ENCOUNTER 2025-04-02 13:53 | Outpatient (POV) | payer OTHER, SELFPAY ==
[2025-04-02 14:12] VITALS: BP 139/74; PULSE 71; RESP 14; O2SAT 96; BMI 27.4
--- NOTE | 2025-04-02 15:18 | A.OFFVIS_ITS ---
[facility] Disclaimer: The information contained in this section may have been updated after the patient was seen, as this information can be updated by other users. Medical History Status post gamma knife treatment Lung cancer chemo for 5 years Surgical History H/O foot surgery History of appendectomy H/O kyphoplasty Family History Mother Rheumatic heart disease Cancer pancreatic Father Coronary artery disease Diabetes Social History Smoking Status: Never smoker alcohol intake: current alcohol intake frequency: 0-2 drinks per day substance use type: denies use current occupational status: other Travel in the last 8 weeks?: None caffeine: Yes PM Subjective & Objective Subjective Subjective:: Patient is a pleasant 65-year-old female who presents today for follow-up of cervical epidural steroid injection C6-C7 on 03/18/2025. Today she rates her pain a 1 out of 10. Patient does state that she has had at least 80% improvement following this injection and feels like it is still working well. Patient does state that it was fairly immediate that she noticed the relief and does not feel like she has the tension like she did before hand. Patient does state that she has been also using a TENS unit with infrared lights and does also pulsate and that does seem to help additionally. Patient is currently managed with Lyrica 50 mg at bedtime and Flexeril 10 mg at bedtime. She denies any side effects. Patient has also been recently prescribed a new medication for the acute pain due to the delay in getting her in for the injection however she states that she had 1 tablet and felt it seemed to cause weird sensations. Patient has not tried it any additional. Patient does make mention today that she has questions regarding possible tramadol. Her Du has been reviewed and is appropriate. Review of Systems: General: No recent weight changes, no fever, no sleep disturbances Respiratory: No cough, no shortness of air, no recurring pulmonary infections Cardiovascular/peripheral vascular: No chest pain, no palpitations, no edema, no shortness of breath Gastrointestinal: No new onset incontinence, normal bowel movements reported Genitourinary: No new onset incontinence Musculoskeletal: Neck pain Psychiatric: [Normal mood/affect] Neurological: [Denies weakness in extremities], [denies balance issues] Pain at rest (0-10 scale): 1 Objective Objective:: Physical Exam: General: Alert and oriented x3, no acute distress, pleasant and cooperative Lungs: Respirations even and unlabored, symmetrical chest expansion Eyes: PERRL Musculoskeletal: Flexion and extension of cervical [spine] within normal limits Neurological: Speech clear, no gross sensory deficit Has patient had previous pain injection?: Yes Percent improvement in pain since last injection: 80% Conservative treatment options previously tried: Home exercise plan Length of treatment: Longer than 12 weeks Meds Home Medications and Allergies Home Medications ?Medication ?Instructions ?Recorded ?Confirmed ?Type pediatric [id number] 1 each PO DAILY SUPPLEMNT 11/26/21 04/02/25 History potassium 99 mg tablet 2 tab PO HS Supplement 11/26/21 04/02/25 History estradiol 0.01% (0.1 mg/gram) 1 appful vaginal QHS PRN 05/24/23 04/02/25 Rx vaginal cream SUPPLEMENT 28 days #42.5 grams tizanidine 2 mg tablet 2 mg PO BID PRN muscle spasticity 05/01/24 04/02/25 Rx #60 tabs aspirin 81 mg tablet,delayed 81 mg PO DAILY 06/05/24 04/02/25 History release (Adult Low Dose Aspirin) baclofen 5 mg tablet 5 mg PO TID PRN muscle spasm #90 06/20/24 04/02/25 Rx tabs omeprazole 20 mg capsule,delayed 20 mg PO DAILY To prevent 06/20/24 04/02/25 History release Ibuprofen's effects cyclobenzaprine 10 mg tablet 10 mg PO HS PRN muscle spasm #90 09/09/24 04/02/25 Rx tabs biotin 10,000 mcg capsule 10,000 mcg PO DAILY Help my skin 12/11/24 04/02/25 History calcium 600 mg (as carbonate)-vit 1 tab PO BID 12/11/24 04/02/25 History D3 10 mcg (400 unit) chewable tablet (Calcium 600 with Vitamin D3) coQ10 (ubiquinol) 100 mg capsule 100 mg PO BID 12/11/24 04/02/25 History (Qunol Juvencio CoQ10) oseltamivir 75 mg capsule (Tamiflu) 75 mg PO DAILY 2 weeks #14 caps 12/11/24 04/02/25 Rx ibuprofen 800 mg tablet 800 mg PO Q8H PRN pain #90 tabs 01/13/25 04/02/25 Rx cyclobenzaprine 5 mg tablet 5 mg PO BID #180 tabs 03/10/25 04/02/25 Rx pregabalin 50 mg capsule 50 mg PO HS 30 days #90 caps 03/10/25 04/02/25 Rx suzetrigine 50 mg tablet (Journavx) 50 mg PO BID #28 tabs 03/10/25 04/02/25 Rx New Prescriptions to Start Prescriptions: Allergies Allergy/AdvReac Type Severity Reaction Status Date / Time gefitinib (From Iressa) Allergy Verified 12/11/24 13:33 doxycycline AdvReac Unknown Unknown Verified 12/11/24 13:33 allergy reaction Assessment and Plan *Assessment and plan (1) Cervical radiculopathy: Status: Acute Category: Medical Code(s): M54.12 - Radiculopathy, cervical region (2) Degenerative disc disease, cervical: Status: Acute Category: Medical Code(s): M50.30 - Other cervical disc degeneration, unspecified cervical region Plan Patient has had significant improvement following her cervical epidural and does not require any additional injection therapy at this time. Patient was also counseled regarding the tramadol that that may be something in future that we can try in times of worsening pain. Patient is doing much better however currently and does not require any additional pain medication. I did discuss with her that I will send refills of her ibuprofen 800 mg to be used as needed. Patient denies any heart or kidney issues. Patient will return to clinic in 3 months. Patient has been instructed to contact the clinic with any concerns before the next appointment. Dr. Brown has reviewed this note and agrees with this plan of care. This note was dictated using voice recognition software and make contain errors or omissions. All injections are used with Lidocaine, Bupivacaine and dexamethasone. Occasionally urine drug screen is needed to verify patient's compliance with our office pain contract. This is ordered based off specific treatments related to chronic pain with the potential to abuse certain medications.
== END 2025-04-02 23:59 | disposition home or self-care (01) ==
PROVIDERS: PCP Nurse Practitioner Family; Visit Provider Nurse Practitioner Family
DX: M50.10 Cervical disc disorder with radiculopathy, unspecified cervical region (principal); Z79.899 Other long term (current) drug therapy
CPT/HCPCS: 99212; G0463

== ENCOUNTER 2025-05-01 15:33 | Outpatient (CLI) | payer OTHER, SELFPAY ==
--- NOTE | 2025-05-01 15:39 | XR_ITS ---
FINAL REPORT CLINICAL HISTORY: left hip pain x 5 weeks, no known trauma COMPARISON: None FINDINGS: LEFT HIP: Two views of the left hip with an AP view of the pelvis demonstrate no acute fracture or dislocation. The joint spaces are preserved. The femoral heads have normal smooth contours. There may be minimal hypertrophic changes of the acetabular margins. No soft tissue abnormality is seen. IMPRESSION: No acute bony abnormality. Reviewed, Interpreted and Dictated by Aaron Gaviria MD Transcribed by Shila Javier Authenticated and [facility]
== END 2025-05-01 23:59 | disposition home or self-care (01) ==
LOC: RAD 15:34
PROVIDERS: PCP Nurse Practitioner Family; Visit Provider Nurse Practitioner Family
DX: M25.552 Pain in left hip (principal)
CPT/HCPCS: 73502

== ENCOUNTER 2025-06-19 14:58 | Outpatient (POV) | payer OTHER, SELFPAY ==
--- OUTSIDE RECORDS SUMMARY | 2025-06-19 15:04 | XMS_ITS ---
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 Name Role Phone Cata Blount APRN Primary Care Provider [phone] Active Problems Problem Noted Date Diagnosed Date Lumbar discogenic pain syndrome 06/25/2020 Insomnia due to medical condition 06/25/2020 PHN (postherpetic neuralgia) 06/25/2020 Lumbar disc herniation 06/24/2020 Degeneration of lumbar or lumbosacral interverte bral disc 06/24/2020 Acquired metatarsus varus of right foot 04/03/20 19 Contracture of joint of right foot 04/03/2019 Contracture of joint of foot, left 04/03/2019 Upper respiratory tract infection 02/28/2019 Laryngitis 02/28/2019 Needs flu shot 09/07/2018 Myofascial pain 06/26/2018 History of kyphoplasty 06/26/2018 Spondylosis of lumbar region without myelopathy or radiculopathy 06/26/2018 Thoracic radiculopathy due to intervertebral dis c disorder 06/26/2018 Lumbar stenosis with neurogenic claudication 05/2018 Dysuria 08/02/2017 Bone metastases 12/14/2016 Overview (02/20/2023): 02/18/2023 DX Regulatory Update Adenocarcinoma of ESTHELA lung 08/26/2015 Cancer Staging:Clinical stage from 08/26/2015:Stage IV(T2, NX, M1b) - Signed by Pastor Araiza MD on 05/11/2016 Overview (08/16/2016): Images from the original note were not included. Stable on Afatinib. Current Treatment and Therapy Plans OP LUNG Osimertinib* Plan Start Date:04/22/2021 Plan Provider:Johnathon Hannon MD Linked Problems Malignant neoplasm of upper lobe of left lung Treatment Medications Current Day (Pre-T reatment Orders - Planned for 04/22/2021) Next Day (Day 1, Cycle 1 - Planned for 04/23/2021) No medications scheduled. No medications schedul ed. No medications scheduled. Past Treatment and Therapy Plans No past plan information found. Resolved Problems Problem Noted Date Diagnosed Date Resolved Date Chest cold 02/28/2019 06/17/2020
--- OUTSIDE RECORDS SUMMARY | 2025-06-19 15:04 | XMS_ITS | Clinical Summary ---
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 As Directed PRN Active calcium carbonate EX (TUMS EX) 750 MG chewable tablet Chew 1 tablet Daily. Active Potassium 99 MG tablet Take by mouth. Activ e diphenhydrAMINE (BENADRYL) 25 mg capsule Take 1 capsule by mouth. Active Pediatric Multiple Vitamins (FLINTSTONES MULTIVITAMIN PO) Take by mouth. Active magnesium chloride-calcium (SLOW MAGNESIUM/CALCIUM) 64-106 MG tablet delayed-release ec tablet 06/21/20 20 Active aspirin 81 MG EC tablet Take 1 tablet by mouth Daily. Active sulfamethoxazole-t rimethoprim (BACTRIM DS,SEPTRA DS) 800-160 MG per tabletIndications: Malignant neoplasm of upper lobe of left lung,Herpes zoster without complication,Atrop hic vaginitis Take 1 tablet by mouth 2 (Two) Times a Day. 28 tablet 01/19/20 21 Active Additional Information Patient taking differently:1 tablet Oral 2 Times Daily,Takes as needed, Reported on 06/25/2021 fluconazole (DIFLUCAN) 100 MG tabletIndications: Malignant neoplasm of upper lobe of left lung,Herpes zoster without complication,Atrop hic vaginitis Take 1 tablet by mouth Daily. 6 tablet 01/19/20 21 Active estradiol (ESTRACE) 0.1 MG/GM vaginal cream USE 1 APPLICATORFUL VAGINALLY DIRECTED EVERY DAY AT BEDTIME 07/19/20 21 Active oxyCODONE-acetamin ophen (Percocet) 10-325 MG per tabletIndications: Malignant neoplasm metastatic to bone Take 1 tablet by mouth Every 6 (Six) Hours As Needed for Moderate Pain. 60 tablet 3 4:07 PM EDT 05/22/20 23 Active diclofenac (VOLTAREN) 50 MG EC tablet Take 1 tablet by mouth 2 (Two) Times a Day As Needed (for mild pain). 60 tablet 1 06/06/20 23 Active pregabalin (LYRICA) 25 MG capsuleIndications :Lumbar disc herniation,Lumbar discogenic pain syndrome,Degenerat ion of lumbar or lumbosacral intervertebral disc Take 1 capsule by mouth 3 (Three) Times a Day. 90 capsule 2 06/14/20 23 Active temazepam (RESTORIL) 15 MG capsuleIndications :Malignant neoplasm of upper lobe of left lung Take one capsule by mouth every night as needed for sleep 30 capsule 11/14/20 23 Active doxepin (SINEquan) 10 MG capsule Take 1 capsule by mouth 2 (Two) Times a Day. 60 capsule 1 11/21/19 24 Active tiZANidine (ZANAFLEX) 2 MG tablet Take 1 tablet by mouth At Night As Needed for Muscle Spasms. 30 tablet 1 02/19/20 24 Active Active Problems Problem Noted Date Diagnosed Date [...] note were not included. Stable on Afatinib. Resolved Problems Problem Noted Date Diagnosed Date Resolved Date Chest cold 02/28/2019 06/17/2020 Immunizations Immunization Administration Dates Next Due COVID-19 (PFIZER) Purple Cap Monovalent 12/30/19 21,12/09/2020 Flu Vaccine Quad PF >36MO 09/23/2017 Hepatitis A 04/03/2019 Shingrix 04/03/2019 flucelvax quad pfs =>4 YRS 09/17/2019,09/07/2018 influenza Split 10/31/2016 Family History Medical History Relation Name Comments Alcohol abuse Brother 1 Stan Valente Liver Cancer/ Transplant Cancer Brother 1 Stan Valente Liver, Stomach Cancer Diabetes Brother 1 Stan Valente Type 2 Diabete s Hearing loss Brother 1 Stan Valente Caused by [employer] Duty Liver disease Brother 1 Stan Valente Brought on by Alcoholism Diabetes Brother 2 Ty Sidra Type 2 Diabetes Hearing loss Brother 2 Ty Valente Worsens with Ag e Hyperlipidemia Brother 2 Ty Sidra Diabetes Father David Sidra Type 2 Diabete s Hearing loss Father David Sidra Worsened with Age Heart disease Father David Sidra Coronary Dise ase Hyperlipidemia Father Hernandez Sidra Arthritis Maternal Grandfather Stan Jara Hearing loss Maternal Grandfather Stan Jara Worsen ed with Age Heart disease Maternal Grandfather Stan Jara Coron stan Disease Cancer Maternal Grandmother Yesika Marek Ovarian Cancer Ovarian cancer Maternal Grandmother Yesika Jara Cancer Maternal Uncle Benita Jara Lung Cancer ( Smoking) Cancer Mother Joan Valente Skin & Pancreat ic Cancer Heart disease Mother Joan Valente Valve Disease Miscarriages / Stillbirths Mother Joan Valente M iscarriage Diabetes Paternal Grandmother Emilee Valente Type 2 Diabetes Heart disease Paternal Grandmother Emilee Valente Bernal ry Disease Breast cancer Neg Hx Relation Name Status Comments Brother 1 Stan Valente Brother 2 Ty Valente Child 1 Alive Child 2 Alive Father David Valente Alive Maternal Grandfather Stan Jara Maternal Grandmother Yesika Jara Maternal Uncle Benita Jara Mother Joan Valente Alive Paternal Grandmother Emilee Valente Social History Tobacco Use Types Packs/Day Years Used Date Smoking Tobacco: Never Smokeless Tobacco: Never Tobacco Cessation:Counseling Given: No Alcohol Use Standard Drinks/Week Comments Yes 10 (1 standard drink = 0.6 oz pu re alcohol) occasional PHQ-2 Answer Date Recorded Retired PHQ-9: Brief Depression Severity Measure Score 0 03/28/2023 Abuse Screen Answer Date Recorded Unsafe at Home or Work/School Not on file Feels Threatened by Someone? Not on file 07/2023 Does Anyone Keep You from Co ntacting Others or Doint Things Outside the Home? Not on file 08/28/2023 Physical Sign of Abuse Present Not on file 1 Housing Stability Answer Date Recorded Current Living Arrangements Not on file 07/2023 Potentially Unsafe Housing Conditions Not on sara e 08/28/2023 Family and Community Support Answer Guillaume e Recorded Help with Day-to-Day Activities Not on file 08/28/2023 Lonely or Isolated Not on file 08/28/2023 Employment Answer Date Recorded Do you want help finding or keeping work or a chelo b? Not on file 08/28/2023 Disabilities Answer Date Recorded Concentrating, Remembering, or Making Decisions Difficulty Not on file 08/28/2023 Doing Errands Independently Difficulty Not on fi le 08/28/2023 Education Answer Date Recorded Help with school or training? Not on file Preferred Language Not on file 08/28/2023 PHQ-2 Answer Date Recorded Retired PHQ-9: Brief Depression Severity Measure Score 0 03/28/2023 Comments No Sex and Gender Information Value Date Recorded Sex Assigned at Not on file Legal Sex Female 4:06 PM EDT Gender Identity Not on file Sexual Orientation Not on file Last Filed Vital Signs Vital Sign Reading Time Taken Comments Blood Pressure 131/61 06/09/2023 8:35 AM EDT Pulse 64 06/09/2023 8:35 AM EDT Temperature 36 C (96.8 F) 06/09/2023 10:03 AM EDT Respiratory Rate 18 06/09/2023 8:35 AM EDT Oxygen Saturation 97% 06/09/2023 8:35 AM EDT Inhaled Oxygen Concentration - - Weight 77.3 kg (170 lb 6.4 oz) 06/09/2023 10:03 AM EDT Height 167.6 cm (5' 5.98 ) 06/09/2023 10:03 AM E DT Body Mass Index 27.52 06/09/2023 10:03 AM EDT Plan of Treatment Health Maintenance Due Date Last Done Comments TDAP/TD VACCINES (1 - Tdap) 02/22/1979 COLOGUARD 02/22/2005 COLON CANCER SCREENING 5 YEA R SIGMOIDOSCOPY 02/22/2005 COLONOSCOPY 02/22/2005 COLORECTAL CANCER SCREENING 02/22/2005 CT COLONOGRAPHY 02/22/2005 FECAL OCCULT BLOOD TEST 02/22/2005 FIT Testing (1 year) 02/22/2005 Pneumococcal Vaccine 50+ (1 of 1 - PCV) 02/22/2010 ANNUAL PHYSICAL 03/09/2017 HEPATITIS C SCREENING 03/09/2017 PT PLAN OF CARE 10/08/2018 07/10/2018 MAMMOGRAM 09/02/2022 09/02/2020, 06/0 05/2019, 04/25/2018, Additional history exists DXA SCAN 04/22/2024 04/22/2022 COVID-19 Vaccine (2023-2 5 season) 2024 08/24/2022, 03/16/2022, 07/28/2021, Additional history exists INFLUENZA VACCINE 08/20/2025 09/15/2023, , 08/23/2021, Additional history exists ZOSTER VACCINE Completed 05/29/2020, 04/03/2019 Procedures Procedure Name Priority Date/Time Associated Diagnosis Comments DEXA BONE DENSITY AXIAL Routine 04/22/2022 Encounter for screening for osteoporosis MAMMO SCREENING DIGITAL TOMOSYNTHESIS BILATERAL W CAD Routine 09/02/2020 9:41 AM EDT Visit for screening mammogram from Last 3 Months or Most Recently Relevant to Health Maintenance Results * DEXA Bone Density Axial (04/22/2022) Anatomical Region Laterality Modality Wrist, Hip, L-spine N/A Radiographic Imaging us Johnathon Hannon MD [facility] [place] DXA ORDERABLES Final Result * Mammo Screening Digital Tomosynthesis Bilateral With CAD (09/02/2020 9:41 AM EDT) Anatomical Region Laterality Modality Breast N/A Mammography 09/05/2020 1:43 PM EDT Impressions 09/05/2020 1:47 PM EDT Negative screening mammogram. RECOMMENDATION: Continue annual screening mammography. BI-RADS CATEGORY 1, NEGATIVE. CAD was utilized. The standard false-negative rate of mammography is between 10% and 25%. Complex patterns or increased breast density will markedly elevate the false-negative rate of mammography. A letter, in lay terminology, with the results of this exam will be mailed to the patient. This report was finalized on 09/05/2020 1:[address] Leta Renee MD. Narrative 09/05/2020 1:47 PM EDT BILATERAL SCREENING MAMMOGRAM WITH TOMOSYNTHESIS: HISTORY: The patient has no personal or significant family history of breast cancer and no new breast complaints at the time of screening mammography. TECHNIQUE: Bilateral CC and MLO low dose, full field digital mammographic images were obtained with 2-D acquisitions and tomosynthesis. COMPARISON: 04/26/2019, 04/25/2018, 05/09/2017, and 09/02/2015 FINDINGS: There are scattered areas of fibroglandular density. The fibroglandular pattern is stable. There are no suspicious masses, worrisome calcifications, nonsurgical areas of architectural distortion, or other secondary signs of malignancy. us Johnathon Hannon MD [facility] [place] MAMMOGRAPHY ORDERABLES Beatriz l Result from Last 3 Months or Most Recently Relevant to Health Maintenance Insurance [employer] Care Teams Air Motor Repairer Relationship Specialty Start Date End Date Cata Blount APRN [address] [place] [address] PCP - General Nurse Practitioner 05/16/23
--- NOTE | 2025-06-19 15:12 | EXP.PAIN.SOA ---
[facility] Disclaimer: The information contained in this section may have been updated after the patient was seen, as this information can be updated by other users. Medical History Lung cancer chemo for 5 years Status post gamma knife treatment Surgical History H/O foot surgery H/O kyphoplasty History of appendectomy Family History Mother Rheumatic heart disease Cancer pancreatic Father Coronary artery disease Diabetes Social History (Updated 05/01/25 @ 14:58 by Laura Dey CMA) Smoking Status: Never smoker alcohol intake: current alcohol intake frequency: 0-2 drinks per day substance use type: denies use current occupational status: other Travel in the last 8 weeks?: Inside the [place] caffeine: Yes Have you lived/traveled outside [place] in past 30 days?: No Contact w/someone who lives/traveled outside US past 30 days?: No Exposure to someone with infectious disease in past 14 days?: No Do you have a fever (greater than 100.4 F or 38 C)?: No Have you tested positive for COVID-19?: No Exposed to someone with COVID-19 in past 14 days?: No Do you have a sore throat?: No Do you have a cough?: No Do you have any weakness?: No Do you have any diarrhea?: No Are you experiencing any unusual bleeding?: No Do you have any muscle aches/pain?: No Do you have any abdominal pain?: No Are you experiencing loss of taste or smell?: No PM Subjective & Objective Subjective Subjective:: Patient is a pleasant 65-year-old female who presents today for her medication refill and follow-up. Today she rates her pain a 1 out of 10. She denies any new trauma or injury. Patient did great with her last cervical epidural at C6-C7 back in February that did provide 80% improvement and is still working well. Patient is prescribed Lyrica 50 mg at bedtime, Flexeril 10 mg at bedtime and ibuprofen 800 mg as needed. Patient denies any side effects. She states that these medications are working well for her. Her Du has been reviewed and is appropriate. Review of Systems: General: No recent weight changes, no fever, no sleep disturbances Respiratory: No cough, no shortness of air, no recurring pulmonary infections Cardiovascular/peripheral vascular: No chest pain, no palpitations, no edema, no shortness of breath Gastrointestinal: No new onset incontinence, normal bowel movements reported Genitourinary: No new onset incontinence Musculoskeletal: Neck pain Psychiatric: [Normal mood/affect] Neurological: [Denies weakness in extremities], [denies balance issues] Pain at rest (0-10 scale): 1 Objective Objective:: Physical Exam: General: Alert and oriented x3, no acute distress, pleasant and cooperative Lungs: Respirations even and unlabored, symmetrical chest expansion Eyes: PERRL Musculoskeletal: Flexion and extension of cervical [spine] within normal limit Neurological: Speech clear, no gross sensory deficit Has patient had previous pain injection?: No Conservative treatment options previously tried: Home exercise plan Length of treatment: Longer than 12 weeks Meds Home Medications and Allergies Home Medications ?Medication ?Instructions ?Recorded ?Confirmed ?Type pediatric tokweqtn-taih-hla 1 each PO DAILY SUPPLEMNT 11/26/21 05/01/25 History potassium 99 mg tablet 2 tab PO HS Supplement 11/26/21 05/01/25 History estradiol 0.01% (0.1 mg/gram) 1 appful vaginal QHS PRN 05/24/23 05/01/25 Rx vaginal cream SUPPLEMENT 28 days #42.5 grams tizanidine 2 mg tablet 2 mg PO BID PRN muscle spasticity 05/01/24 05/01/25 Rx #60 tabs aspirin 81 mg tablet,delayed 81 mg PO DAILY 06/05/24 05/01/25 History release (Adult Low Dose Aspirin) baclofen 5 mg tablet 5 mg PO TID PRN muscle spasm #90 06/20/24 05/01/25 Rx tabs cyclobenzaprine 5 mg tablet 5 mg PO BID #180 tabs 03/10/25 05/01/25 Rx pregabalin 50 mg capsule 50 mg PO HS 30 days #90 caps 03/10/25 05/01/25 Rx ibuprofen 800 mg tablet 800 mg PO Q8H PRN pain #90 tabs 04/02/25 05/01/25 Rx Premarin 0.625 mg/gram vaginal 0.625 mg vaginal DAILY #30 grams 05/01/25 05/01/25 Rx cream (conjugated estrogens) calcium 600 mg (as carbonate)-vit 2 tab PO DAILY 05/01/25 05/01/25 History D3 10 mcg (400 unit) chewable tablet (Calcium 600 with Vitamin D3) sulfamethoxazole 800 1 tab PO DAILY PRN after sexual 05/01/25 05/01/25 Rx mg-trimethoprim 160 mg tablet intercourse #90 tabs New Prescriptions to Start Prescriptions: Allergies Allergy/AdvReac Type Severity Reaction Status Date / Time gefitinib (From Iressa) Allergy Verified 05/01/25 14:44 doxycycline AdvReac Unknown Unknown Verified 05/01/25 14:44 allergy reaction Assessment and Plan *Assessment and plan (1) Degenerative disc disease, cervical: Status: Acute Category: Medical Code(s): M50.30 - Other cervical disc degeneration, unspecified cervical region (2) Cervical radiculopathy: Status: Acute Category: Medical Code(s): M54.12 - Radiculopathy, cervical region Plan I will send in a 3-month supply of her pregabalin, Flexeril and ibuprofen. Patient will return to clinic in 3 months for reevaluation of symptoms and plan of care. Patient has been instructed to contact the clinic with any concerns before the next appointment. Dr. Brown has reviewed this note and agrees with this plan of care. This note was dictated using voice recognition software and make contain errors or omissions. All injections are used with Lidocaine, Bupivacaine and dexamethasone. Occasionally urine drug screen is needed to verify patient's compliance with our office pain contract. This is ordered based off specific treatments related to chronic pain with the potential to abuse certain medications.
[2025-06-19 15:55] VITALS: BP 123/61; PULSE 72; RESP 14; O2SAT 97; BMI 27.4
== END 2025-06-19 23:59 | disposition home or self-care (01) ==
PROVIDERS: PCP Nurse Practitioner Family; Visit Provider Nurse Practitioner Family
DX: M50.123 Cervical disc disorder at C6-C7 level with radiculopathy (principal); Z79.899 Other long term (current) drug therapy; Z79.1 Long term (current) use of non-steroidal anti-inflammatories (NSAID)
CPT/HCPCS: 99212; G0463

== ENCOUNTER 2025-07-29 08:55 | Outpatient (CLI) | payer OTHER, SELFPAY ==
[2025-07-29 09:22] LABS: Hematocrit 41.1 % (37.0-47.0); Hemoglobin 13.6 g/dL (12.2-16.2); Immature Granulocytes % 0.2 %; Mean Corpuscular HGB Conc 33.1 g/dL (31.8-35.4); Mean Corpuscular Hemoglobin 30.0 pg (27.0-31.2); Mean Corpuscular Volume 90.5 fl (81-99); Nucleated Red Blood Cells % 0 %; Platelet Count 187 K/mm3 (142-424); Red Blood Count 4.54 M/mm3 (4.20-5.40); Red Cell Distribution Width-SD 43.6 fL; White Blood Count 4.2 K/mm3 (4.8-10.8)
[2025-07-29 09:27] LABS: Alanine Aminotransferase 23 U/L (12-78); Albumin Level 4.0 g/dl (3.5-5.0); Albumin/Globulin Ratio 1.4 (1.1-1.8); Alkaline Phosphatase 95 U/L (38-126); Anion Gap 10.0 mEq/L (5-15); Aspartate Amino Transferase 30 U/L (14-36); Bilirubin,Total 0.6 mg/dl (0.2-1.3); Blood Urea Nitrogen 14 mg/dl (7-17); Calcium 10.1 mg/dl (8.4-10.2); Carbon Dioxide 27 mmol/L (22.0-30.0); Chloride 102 mmol/L (98-107); Creatinine,Serum 0.60 mg/dl (0.52-1.04); Estimated Glomerular Filt Rate 100 ml/min (>60); GFR (African American) 121 ML/MIN (>60); Globulin 2.8 g/dL (1.3-3.2); Glucose 118 mg/dl (74-100); Potassium 4.0 mmoL/L (3.5-5.1); Sodium 135 mmol/L (136-145); Total Protein,Serum 6.8 g/dl (6.3-8.2)
--- NOTE | 2025-07-29 09:30 | CT_ITS ---
FINAL REPORT TECHNIQUE: After the administration of IV contrast, axial images through the right hip was performed by computed tomography. Sagittal and coronal reformatted images were obtained and reviewed. This study was performed with techniques to keep radiation doses as low as reasonably achievable, (ALARA). Individualized dose reduction techniques using automated exposure control or adjustment of mA and/or kV according to the patient's size were employed. CLINICAL HISTORY: right hip pain, hx metastatic cancer FINDINGS: There is no acute fracture or dislocation. There is degenerative disease of the hip and sacroiliac joint. No lytic or destructive lesion is identified. There is no acute soft tissue abnormality. IMPRESSION: Degenerative disease of the hip without acute bony abnormality. Reviewed, Interpreted and Dictated by Shannon Wei MD Transcribed by Gely Newman Authenticated and . [facility]
[2025-07-29] MEDS: IOPAMIDOL-370 (76%);100ML BOTTLE 100 ML IV (10:12)
[2025-07-29] MEDS: SODIUM CHLORIDE 0.9% 10ML SYR (RAD ONLY) 10 ML IV (10:12)
--- NOTE | 2025-07-29 10:15 | CT_ITS ---
FINAL REPORT TECHNIQUE: Thin section axial images were obtained through the abdomen after intravenous contrast. Reconstruction images were obtained from the axial data. Exam was performed using dose reduction techniques. CLINICAL HISTORY: lung cancer COMPARISON: 12/10/2024 FINDINGS: There are several hypodense hepatic lesions which are unchanged and likely represent cysts. The gallbladder is present. The spleen, adrenal glands, and pancreas are unremarkable. Bilateral hypodense renal lesions are stable. There is no hydronephrosis. Abdominal GI tract is without acute abnormality. There is no abdominal lymphadenopathy or ascites. The pelvic solid organs are unremarkable. The pelvic portions of the GI tract are without acute abnormality. The appendix is not visualized. There are no secondary signs of appendicitis. Uterus is unremarkable for patient's age. There is wall thickening of the urinary bladder which could be related to incomplete distention. Cystitis not excluded. There is no pelvic lymphadenopathy or ascites. There are stable changes of kyphoplasty and fracture deformity at L2. No acute osseous abnormalities identified. IMPRESSION: Wall thickening of the urinary bladder which could be related to incomplete distention. Cystitis not excluded. Otherwise, no acute abnormality. Reviewed, Interpreted and Dictated by Shannon Wei MD Transcribed by Madelaine Zapata Authenticated and [facility]
--- NOTE | 2025-07-29 10:15 | CT_ITS ---
FINAL REPORT TECHNIQUE: Thin section axial images were obtained from the thoracic inlet through the upper abdomen after intravenous contrast injection. Reconstruction images were obtained from the axial data. Exam was performed using dose reduction technique. CLINICAL HISTORY: lung cancer COMPARISON: 12/10/2024 FINDINGS: There is no mediastinal, hilar, or axillary lymphadenopathy. There is no pleural or pericardial effusion. Airspace disease is seen in the posterior medial left upper lobe, unchanged from prior exam likely related to posttreatment change. There is a 4 mm nodule at the right lung apex seen on series 4, image 15 which may be related to scar but is slightly more prominent than on prior exam. No acute osseous abnormality. IMPRESSION: No acute intrathoracic abnormality. Stable airspace disease in the left upper lobe and 4 mm nodule at the right lung apex. Reviewed, Interpreted and Dictated by Shannon Wei MD Transcribed by Madelaine Zapata Authenticated and [facility]
[2025-07-29 10:29] LABS: Hepatitis C Ab Qual. W/ RFX NEGATIVE (Negative)
[2025-07-30 10:18] LABS: Hepatitis B Surface Antigen Negative (Negative)
== END 2025-07-29 23:59 | disposition home or self-care (01) ==
LOC: RAD 08:56
PROVIDERS: PCP Nurse Practitioner Family; Visit Provider Internal Medicine Medical Oncology
DX: C34.90 Malignant neoplasm of unspecified part of unspecified bronchus or lung (principal); J98.4 Other disorders of lung; M16.11 Unilateral primary osteoarthritis, right hip; R91.1 Solitary pulmonary nodule; R93.41 Abnormal radiologic findings on diagnostic imaging of renal pelvis, ureter, or bladder; Z11.4 Encounter for screening for human immunodeficiency virus [HIV]; Z11.59 Encounter for screening for other viral diseases
CPT/HCPCS: 36415; 71260; 73701; 74177; 80053; 85025; 86803; 87340; 87389; Q9967

== ENCOUNTER 2025-07-31 10:28 | Outpatient (CLI) | payer OTHER, SELFPAY ==
--- NOTE | 2025-07-31 10:30 | MM_ITS ---
PROCEDURE INFORMATION: Exam: MG Bilateral Screening 3D Mammography Exam date and time: 07/31/2025 10:35 AM Age: 65 years old Clinical indication: Screening exam. TECHNIQUE: Imaging protocol: Bilateral Screening tomosynthesis and 2D mammography including computer-aided detection (CAD) when performed. COMPARISON: 1. MG MM DIG SCREENING MAMM BI W/CAD 08/31/2022 1:38 PM 2. MG MAMMO SCREENING DIGITAL TOMOSYNTHESIS BILATERAL W CAD 04/26/2019 11:14 AM FINDINGS: MAMMOGRAPHY: Breast composition: There are scattered areas of fibroglandular density. Mass: No suspicious masses. Architectural distortion: None. Calcifications: No suspicious calcifications. Asymmetric density: None. Skin thickening: None. Axillary adenopathy: None. IMPRESSION: No mammographic evidence of malignancy. Annual screening is recommended unless otherwise clinically indicated. ASSESSMENT: BI-RADS Category 1: Negative.
--- OUTSIDE RECORDS SUMMARY | 2025-07-31 10:39 | XMS_ITS ---
[facility] Address [address] [place] [address] Care Team Providers Care Fingernail Technician Name Role Phone Cata Blount APRN Primary Care Provider [phone] Active Problems Problem Noted Date Diagnosed Date [...]
--- OUTSIDE RECORDS SUMMARY | 2025-07-31 10:39 | XMS_ITS | Clinical Summary ---
[facility] Address [address] [place] [address] Care Team Providers Care Customer Engagement Analyst Name Role Phone Cata Blount APRN Primary Care Provider [phone] Allergies Active Allergy Reactions Criticality Noted Date [...] exists DXA SCAN 04/22/2024 04/22/2022 COVID-19 Vaccine (2024-2 6 season) 2025 08/24/2022, 03/16/2022, 07/28/2021, Additional history exists INFLUENZA [...] N/A Radiographic Imaging us Johnathon Hannon MD [facility] DXA ORDERABLES Final Result * Mammo [...] signs of malignancy. us Johnathon Hannon MD [facility] [place] MAMMOGRAPHY ORDERABLES Beatriz l Result from Last 3 Months or Most Recently Relevant to Health Maintenance Insurance [employer] Care Teams Customer Engagement Analyst Relationship Specialty Start Date End Date Cata Blount APRN [address] [place] [address] PCP - General Nurse Practitioner 05/16/23
== END 2025-07-31 23:59 | disposition home or self-care (01) ==
LOC: RAD 10:28
PROVIDERS: PCP Nurse Practitioner Family; Visit Provider Nurse Practitioner Family
DX: Z12.31 Encounter for screening mammogram for malignant neoplasm of breast (principal); R92.323 Mammographic fibroglandular density, bilateral breasts
CPT/HCPCS: 77063; 77067